=== PATIENT | male | born 1935 | race Caucasian/White ===

== ENCOUNTER 2018-09-02 07:41 | Outpatient (CLI) | payer MEDICARE ==
--- NOTE | 2018-09-02 14:14 | HP ---
HISTORY OF PRESENT ILLNESS: Mr. Kristofer Dorado is a very pleasant 82-year-old gentleman accompanied by his , who presents to the [facility] for evaluation of an ulceration of the left medial foot in the region of the metatarsophalangeal joint. The patient states that the ulceration has been present for approximately one year. He states that the ulceration began as a callus. He states that the "skin peeled off and never healed". The patient states he has been treated with an antibiotic ointment in the past. He also states he has received a trial of Promogran. The patient was referred to the Wound Center by Dr. Jada De La Garza for evaluation for hyperbaric oxygen therapy. Records indicate that the patient has received a trial of Medihoney and a trial of Promogran for the left medial foot ulceration. The patient states that he is presently receiving dressing changes with the assistance of home health. PAST MEDICAL HISTORY: 1. Atrial fibrillation. 2. Hypertension. 3. Coronary artery disease. 4. Nephrolithiasis. 5. Diabetes mellitus. 6. CVA x2. 7. TIA. 8. Gastroesophageal reflux disease. 9. Gout. 10. DJD. 11. History of DVT and PE. 12. Peripheral vascular disease. 13. Chronic kidney disease, stage 3. PAST SURGICAL HISTORY: 1. Nasal surgery. 2. Tonsillectomy. 3. Neck surgery. 4. Skin carcinoma removal. 5. Right foot surgery. 6. 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 MEDICATIONS: 1. Glipizide. 2. Coreg. 3. Coenzyme Q10. 4. Hydralazine. 5. Flomax. 6. Coumadin. 7. Clonidine. 8. Vitamin B12. ALLERGIES: NO KNOWN DIAGNOSED ALLERGIES. SOCIAL HISTORY: Negative for tobacco or EtOH use. FAMILY HISTORY: Negative for diabetes mellitus or coronary artery disease. PHYSICAL EXAMINATION: VITAL SIGNS: Temperature 97.4, pulse 77, respirations 18, and blood pressure 138/65. Accu-Chek 134. GENERAL: An 82-year-old gentleman, sitting on chair in examination room, in no acute distress. HEENT: Normocephalic, atraumatic. NECK: No nuchal rigidity. CHEST: Clear to auscultation. CV: Regular rate and rhythm. ABDOMEN: Soft. EXTREMITIES: An ulceration of the left foot in the region of the 1st metatarsophalangeal joint is present, which measures approximately 1.4 x 1.3 cm. Nonviable tissue present within the wound margins was debrided with an excisional full-thickness debridement. No purulent drainage is associated with the wound. No erythema of the skin surrounding the wound is present. No maceration of the skin of the periwound is noted. A dorsalis pedis pulse is palpable on the right. No significant edema of the left foot is present on exam today. ASSESSMENT AND PLAN: 1. 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 Dressing changes of Hydrofera Blue and Mepilex border will be initiated today. These dressing changes are to be performed 3 times per week after cleansing and irrigation with the assistance of home health. No antibiotics will be prescribed today based upon the appearance of the wound. In view of the chronicity of the wound, however, arrangements will be made for MRI of the left foot to look for findings suggestive of osteomyelitis. MRI with and without contrast will be obtained if possible. I will see Mr. Dorado again in 3 weeks. I have explained to the patient that he is not at the present time a candidate for hyperbaric oxygen therapy as tendon or bone is not exposed and he has no history of chronic refractory osteomyelitis at the present time. I have explained to the patient that he is a candidate for treatment with a bioengineered skin substitute, which will be initiated after MRI of the left foot is obtained. 2. Diabetes mellitus. The patient's Accu-Chek in clinic today is 134. The patient has been reminded that for optimal wound healing, his blood glucoses should remain below 150. 3. Atrial fibrillation. 4. Hypertension. 5. Coronary artery disease. 6. Nephrolithiasis. 7. Cerebrovascular accident x2. 8. Transient ischemic attack. 9. Gastroesophageal reflux disease. 10. Gout. 11. Degenerative joint disease. 12. History of deep vein thrombosis and pulmonary embolism. 13. Peripheral vascular disease. 14. Chronic kidney disease, stage 3. Job ID: [id number]
[2018-09-02] MEDS ORDERED: Sodium Chloride 0.9% 15 ML NEB ONE (15:00)
== END 2018-09-02 07:42 | disposition home or self-care (01) ==
LOC: WCC 07:41
PROVIDERS: ATTEND Family Medicine
DX: E11.621 Type 2 diabetes mellitus with foot ulcer (principal); L97.529 Non-pressure chronic ulcer of other part of left foot with unspecified severity; I48.91 Unspecified atrial fibrillation; I12.9 Hypertensive chronic kidney disease with stage 1 through stage 4 chronic kidney disease, or unspecified chronic kidney disease; E11.22 Type 2 diabetes mellitus with diabetic chronic kidney disease; N18.3 Chronic kidney disease, stage 3 (moderate); I25.10 Atherosclerotic heart disease of native coronary artery without angina pectoris; N20.0 Calculus of kidney; I63.9 Cerebral infarction, unspecified; G45.9 Transient cerebral ischemic attack, unspecified; K21.9 Gastro-esophageal reflux disease without esophagitis; M10.9 Gout, unspecified; M19.90 Unspecified osteoarthritis, unspecified site; I73.9 Peripheral vascular disease, unspecified; Z86.711 Personal history of pulmonary embolism; Z86.718 Personal history of other venous thrombosis and embolism
CPT/HCPCS: 11042; 99203; A4218; G0463

== ENCOUNTER 2018-09-18 09:32 | Outpatient (CLI) | payer MEDICARE ==
--- NOTE | 2018-09-18 12:14 | MRI ---
LEFT FOOT MRI WITHOUT IV CONTRAST: Date: 09/18/18 HISTORY: 82-year-old male with history of chronic ulcer, possible osteomyelitis. COMPARISON: 04/23/18. FINDINGS: Since the prior study, there has been amputation of the distal fifth toe. There is some diffuse subcu taneous edema and fat stranding of the foot. Focal soft tissue swelling and wound medial to the great toe, primarily at the metatarsophalangeal joint and proximal phalanx level. There are some arthrosis and degenerative changes of the first metatarsophalangeal joint. No evidence for acute osteomyelitis . No evidence for a drainable abscess. There is some scattered T2 hyperintensity within the intrinsic muscles of the foot, nonspecific finding can certainly be seen in diabetes. IMPRESSION: Soft tissue focal thickening and ulcer medial to the first toe at the metatarsophalangeal joint level . No evidence for osteomyelitis. No evidence for drainable abscess. Diffuse soft tissue subcutaneous edema and swelling. Status post amputation changes of the distal fifth toe. POS: NATALI
== END 2018-09-18 09:33 | disposition home or self-care (01) ==
LOC: BICMRI 09:32
PROVIDERS: ATTEND Family Medicine
DX: E11.621 Type 2 diabetes mellitus with foot ulcer (principal); L97.529 Non-pressure chronic ulcer of other part of left foot with unspecified severity; R60.0 Localized edema; M79.89 Other specified soft tissue disorders; Z89.422 Acquired absence of other left toe(s)

== ENCOUNTER 2018-09-23 10:04 | Outpatient (CLI) | payer MEDICARE ==
--- NOTE | 2018-09-23 11:36 | PRG ---
DATE OF SERVICE: 09/23/2018 HISTORY: Mr. Kristofer Dorado is a very pleasant 82-year-old gentleman, accompanied by his , who presents to the Wound Center for evaluation of an ulceration of the left medial foot in the region of the metatarsophalangeal joint. The patient previously stated that the ulceration had been present for approximately 1 year. He stated that the ulceration began as a callus. He stated that the skin peeled off and never healed. He stated he had been treated with an antibiotic ointment in the past. He also stated he had received a trial of Promogran. Records accompanying the patient at the time of his initial presentation to the Wound Center indicated that the patient had received a trial of Medihoney and a trial of Promogran for the left medial foot ulceration. The patient continues to receive dressing changes with the assistance of Home Health. PHYSICAL EXAMINATION: VITAL SIGNS: Temperature 97.5, pulse 60, blood pressure 144/65, Accu-Chek 96. EXTREMITIES: An ulceration of the left foot in the region of the first metatarsophalangeal joint is present, which measures approximately 1.3 x 1.3 cm. The dimensions of the wound at the time of the patient's last visit were approximately 1.4 x 1.3 cm. Nonviable tissue present within the wound margins was debrided with an excisional full-thickness debridement. No purulent drainage is associated with the wound. No erythema of the skin surrounding the wound is present. No maceration of the skin of the periwound is noted. A dorsalis pedis pulse is palpable on the left. No significant edema of the left foot is present on exam today. ASSESSMENT AND PLAN: 1. 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 Dressing changes of Hydrofera Blue and Mepilex border will be continued 3 times per week after cleansing and irrigation with the assistance of Home Health. MRI of the left foot obtained on 09/18/2018 showed no evidence for osteomyelitis. I will see Mr. Dorado again in 2 weeks. At this time, consideration will be given to treatment with a skin substitute. 2. Diabetes mellitus. The patient's Accu-Chek in clinic today is 96. The patient has been reminded that for optimal wound healing his blood glucoses should remain below 150. 3. Atrial fibrillation. 4. Hypertension. 5. Coronary artery disease. 6. Nephrolithiasis. 7. Cerebrovascular accident x2. 8. Transient ischemic attack. 9. Gastroesophageal reflux disease. 10. Gout. 11. Degenerative joint disease. 12. History of deep vein thrombosis and pulmonary embolism. 13. Peripheral vascular disease. 14. Chronic kidney disease stage 3. Job ID: [id number]
== END 2018-09-23 10:05 | disposition home or self-care (01) ==
LOC: WCC 10:04
PROVIDERS: ATTEND Family Medicine
DX: E11.621 Type 2 diabetes mellitus with foot ulcer (principal); L97.529 Non-pressure chronic ulcer of other part of left foot with unspecified severity; I12.9 Hypertensive chronic kidney disease with stage 1 through stage 4 chronic kidney disease, or unspecified chronic kidney disease; E11.22 Type 2 diabetes mellitus with diabetic chronic kidney disease; N18.3 Chronic kidney disease, stage 3 (moderate); I48.91 Unspecified atrial fibrillation; N20.0 Calculus of kidney; I63.9 Cerebral infarction, unspecified; G45.9 Transient cerebral ischemic attack, unspecified; K21.9 Gastro-esophageal reflux disease without esophagitis; M10.9 Gout, unspecified; M19.90 Unspecified osteoarthritis, unspecified site; I25.10 Atherosclerotic heart disease of native coronary artery without angina pectoris; I73.9 Peripheral vascular disease, unspecified
CPT/HCPCS: 11042

== ENCOUNTER 2018-10-07 10:12 | Outpatient (CLI) | payer MEDICARE ==
--- NOTE | 2018-10-07 11:55 | PRG ---
DATE OF SERVICE: 10/07/2018 HISTORY: Mr. Kristofer Dorado is a very pleasant 82-year-old gentleman, accompanied by his , who presents to the Wound Center for evaluation of an ulceration of the left medial foot in the region of the metatarsophalangeal joint. The patient previously stated that the ulceration had been present for approximately 1 year. He stated that the ulceration began as a callus. He stated that the skin peeled off and never healed. He stated he had been treated with an antibiotic ointment in the past. He also stated he had received a trial of Promogran. Records accompanying the patient at the time of his initial presentation to the Wound Center indicated that the patient had received a trial of Medihoney and a trial of Promogran for the left medial foot ulceration. The patient continues to receive dressing changes with the assistance of Home Health. PHYSICAL EXAMINATION: VITAL SIGNS: Temperature 97.5, pulse 56, respirations 20, blood pressure 113/71. Accu-Chek 114. EXTREMITIES: An ulceration of the left foot in the region of the first metatarsophalangeal joint is present, which measures approximately 1.3 x 1.3 cm. The dimensions of the wound at the time of the patient's last visit were approximately 1.3 x 1.3 cm. Nonviable tissue present within the wound margins was debrided with an excisional full-thickness debridement. No purulent drainage is associated with the wound. No erythema of the skin surrounding the wound is present. No maceration of the skin of the periwound is noted. A dorsalis pedis pulse is palpable on the left. No significant edema of the left foot is present on exam today. ASSESSMENT AND PLAN: 1. 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 MatriStem sheet 3 x 3.5 cm was applied to the wound bed of the ulceration today followed by Adaptic and Mepilex border. The MatriStem sheet was secured to the wound bed with Steri-Strips and Mastisol. The patient's compression garment was applied over the MatriStem sheet and the secondary dressings. Orders will be transmitted to Home Health for the dressings applied in clinic today to be left intact until the patient's followup visit in 1 week. The patient understands and is in agreement with the preceding treatment plan. The patient states he will follow up in the wound center 1 week from today. At this time, consideration will be given to another placement of MatriStem sheet. MRI of the left foot obtained on 09/18/2018, showed no evidence for osteomyelitis. 2. Diabetes mellitus. The patient's Accu-Chek in clinic today is 114. The patient has been reminded that for optimal wound healing, his blood glucoses should remain below 150. 3. Atrial fibrillation. 4. Hypertension. 5. Coronary artery disease. 6. Nephrolithiasis. 7. Cerebrovascular accident x2. 8. Transient ischemic attack. 9. Gastroesophageal reflux disease. 10. Gout. 11. Degenerative joint disease. 12. History of deep venous thrombosis and pulmonary embolism. 13. Peripheral vascular disease. 14. Chronic kidney disease stage 3. Job ID: [id number]
[2018-10-07] MEDS ORDERED: Sodium Chloride 0.9% 15 ML NEB ONE ×2 (15:36→20:12)
[2018-10-07] MEDS ORDERED: Lidocaine 2% PF 100 mg/5 ml Syringe ONE ×2 (15:36→20:12)
== END 2018-10-07 10:13 | disposition home or self-care (01) ==
LOC: WCC 10:12
PROVIDERS: ATTEND Family Medicine
DX: E11.621 Type 2 diabetes mellitus with foot ulcer (principal); L97.529 Non-pressure chronic ulcer of other part of left foot with unspecified severity; E11.22 Type 2 diabetes mellitus with diabetic chronic kidney disease; N18.3 Chronic kidney disease, stage 3 (moderate); I48.91 Unspecified atrial fibrillation; E11.51 Type 2 diabetes mellitus with diabetic peripheral angiopathy without gangrene; K21.9 Gastro-esophageal reflux disease without esophagitis; I12.9 Hypertensive chronic kidney disease with stage 1 through stage 4 chronic kidney disease, or unspecified chronic kidney disease; I25.10 Atherosclerotic heart disease of native coronary artery without angina pectoris; M10.9 Gout, unspecified; M19.90 Unspecified osteoarthritis, unspecified site; N20.0 Calculus of kidney; Z86.73 Personal history of transient ischemic attack (TIA), and cerebral infarction without residual deficits
CPT/HCPCS: 97139; C5275; Q4166; A4218; J2001

== ENCOUNTER 2018-10-14 10:29 | Outpatient (CLI) | payer MEDICARE ==
--- NOTE | 2018-10-14 12:01 | PRG ---
DATE OF SERVICE: 10/14/2018 HISTORY: Mr. Kristofer Dorado is a very pleasant 83-year-old gentleman accompanied by his , who presents to the Wound Center for evaluation of an ulceration of the left medial foot in the region of the metatarsophalangeal joint. The patient previously stated that the ulceration had been present for approximately 1 year. He stated that the ulceration began as a callus. He stated that the skin peeled off and never healed. He stated he had been treated with an antibiotic ointment in the past. He also stated he had received a trial of Promogran. Records accompanying the patient at the time of his initial presentation to the Wound Center indicated that the patient had received a trial of Medihoney and a trial of Promogran for the left medial foot ulceration. At the time of the patient's last visit, MatriStem sheet was applied to the wound bed of the ulceration. PHYSICAL EXAMINATION: VITAL SIGNS: Temperature 97.5, pulse 75, respirations 18, blood pressure 137/61. Accu-Chek 114. EXTREMITIES: An ulceration of the left foot in the region of the first metatarsophalangeal joint is present, which measures approximately 1.5 x 1.3 cm. Nonviable tissue present within the wound margins was debrided with an excisional full-thickness debridement with the use of a curette. More granulation tissue is visible within the wound margins than at the time of the patient's last visit. No purulent drainage is associated with the wound. No erythema of the skin surrounding the wound is present. No maceration of the skin of the periwound is noted. No significant edema of the left foot is present on exam today. ASSESSMENT AND PLAN: 1. 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 MatriStem sheet 3 x 3.5 cm was applied to the wound bed of the ulceration today followed by Adaptic and Mepilex Border. The MatriStem sheet was secured to the wound bed with Steri-Strips and Mastisol. The patient's compression garment was applied over the MatriStem sheet and the secondary dressings. Orders will be transmitted to Home Health for the dressings applied in clinic today to be left intact until the patient's followup visit in 1 week. At the time of the patient's followup visit, consideration will be given to an another placement of MatriStem sheet. MRI of the left foot obtained on 09/18/2018 showed no evidence of osteomyelitis. 2. Diabetes mellitus. The patient's Accu-Chek in clinic today is 114. The patient has been reminded that for optimal wound healing, his blood glucoses should remain below 150. 3. Atrial fibrillation. 4. Hypertension. 5. Coronary artery disease. 6. Nephrolithiasis. 7. Cerebrovascular accident x2. 8. Transient ischemic attack. 9. Gastroesophageal reflux disease. 10. Gout. 11. Degenerative joint disease. 12. History of deep venous thrombosis and pulmonary embolism. 13. Peripheral vascular disease. 14. Chronic kidney disease, stage 3. Job ID: [id number]
[2018-10-14] MEDS ORDERED: Lidocaine 2% PF 100 mg/5 ml Syringe ONE (15:00)
[2018-10-14] MEDS ORDERED: Sodium Chloride 0.9% 15 ML NEB ONE (15:00)
== END 2018-10-14 10:30 | disposition home or self-care (01) ==
LOC: WCC 10:29
PROVIDERS: ATTEND Family Medicine
DX: E11.621 Type 2 diabetes mellitus with foot ulcer (principal); L97.529 Non-pressure chronic ulcer of other part of left foot with unspecified severity; I12.9 Hypertensive chronic kidney disease with stage 1 through stage 4 chronic kidney disease, or unspecified chronic kidney disease; N18.3 Chronic kidney disease, stage 3 (moderate); I48.91 Unspecified atrial fibrillation; I25.10 Atherosclerotic heart disease of native coronary artery without angina pectoris; N20.0 Calculus of kidney; G45.9 Transient cerebral ischemic attack, unspecified; K21.9 Gastro-esophageal reflux disease without esophagitis; M10.9 Gout, unspecified; M19.90 Unspecified osteoarthritis, unspecified site; I73.9 Peripheral vascular disease, unspecified; I63.9 Cerebral infarction, unspecified; Z86.711 Personal history of pulmonary embolism; Z86.718 Personal history of other venous thrombosis and embolism
CPT/HCPCS: Q4166-KX-JC

== ENCOUNTER 2018-10-21 11:03 | Outpatient (CLI) | payer MEDICARE ==
[~2018-10-21 11:03] MED LIST: Sodium Chloride 0.9% 15 ML NEB ONE
--- NOTE | 2018-10-21 13:16 | PRG ---
DATE OF SERVICE: 10/21/2018 HISTORY: Mr. Kristofer Dorado is a very pleasant 83-year-old gentleman, accompanied by his , who presents to the Wound Center for evaluation of an ulceration of the left medial foot in the region of the metatarsophalangeal joint. The patient previously stated that the ulceration had been present for approximately 1 year. He stated that the ulceration began as a callus. He stated that the skin peeled off and never healed. He stated he had been treated with an antibiotic ointment in the past. He also stated he had received a trial of Promogran. Records accompanying the patient at the time of his initial presentation to the Wound Center indicated that the patient had received a trial of Medihoney and a trial of Promogran for the left medial foot ulceration. The patient is presently receiving treatment with MatriStem sheet. PHYSICAL EXAMINATION: VITAL SIGNS: Temperature 97.3, pulse 63, respirations 21, blood pressure 122/69. Accu-Chek 109. EXTREMITIES: An ulceration of the left foot in the region of the first metatarsophalangeal joint is present, which measures approximately 1.3 x 1.3 cm. No purulent drainage is associated with the wound. No erythema of the skin surrounding the wound is present. No maceration of the skin of the periwound is noted. No significant edema of the left foot is present on exam today. ASSESSMENT AND PLAN: 1. 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 MatriStem sheet 3 x 3.5 cm was applied to the wound bed of the ulceration today followed by Adaptic, 4x4s, Webril, and 3M Coban 2 Layer Compression System. The MatriStem sheet was secured to the wound bed with Steri-Strips and Mastisol over the periwound. Orders will be transmitted to Home Health for the dressings applied in clinic today to be left intact until the patient's followup visit in 1 week. At the time of the patient's followup visit, consideration will be given to another placement of MatriStem sheet. MRI of the left foot obtained on 09/18/2018, showed no evidence of osteomyelitis. 2. Diabetes mellitus. The patient's Accu-Chek in clinic today is 109. The patient has been reminded that for optimal wound healing, his blood glucoses should remain below 150. 3. Atrial fibrillation. 4. Hypertension. 5. Coronary artery disease. 6. Nephrolithiasis. 7. Cerebrovascular accident x2. 8. Transient ischemic attack. 9. Gastroesophageal reflux disease. 10. Gout. 11. Degenerative joint disease. 12. History of deep venous thrombosis and pulmonary embolism. 13. Peripheral vascular disease. 14. Chronic kidney disease stage 3. Job ID: [id number]
== END 2018-10-21 11:04 | disposition home or self-care (01) ==
LOC: WCC 11:03
PROVIDERS: ATTEND Family Medicine
DX: E11.621 Type 2 diabetes mellitus with foot ulcer (principal); L97.529 Non-pressure chronic ulcer of other part of left foot with unspecified severity; I48.91 Unspecified atrial fibrillation; I25.10 Atherosclerotic heart disease of native coronary artery without angina pectoris; E11.22 Type 2 diabetes mellitus with diabetic chronic kidney disease; I12.9 Hypertensive chronic kidney disease with stage 1 through stage 4 chronic kidney disease, or unspecified chronic kidney disease; N18.3 Chronic kidney disease, stage 3 (moderate); N20.0 Calculus of kidney; K21.9 Gastro-esophageal reflux disease without esophagitis; M10.9 Gout, unspecified; M19.90 Unspecified osteoarthritis, unspecified site; I73.9 Peripheral vascular disease, unspecified; I63.9 Cerebral infarction, unspecified; G45.9 Transient cerebral ischemic attack, unspecified; Z86.711 Personal history of pulmonary embolism; Z86.718 Personal history of other venous thrombosis and embolism
CPT/HCPCS: A4218; C5275; Q4166-KX-JC

== ENCOUNTER 2018-10-28 10:22 | Outpatient (CLI) | payer MEDICARE ==
--- NOTE | 2018-10-28 11:30 | PRG ---
DATE OF SERVICE: 10/28/2018 HISTORY: Mr. Kristofer Dorado is a very pleasant 83-year-old gentleman, accompanied by his who presents to the Wound Center for evaluation of an ulceration of the left medial foot in the region of the metatarsophalangeal joint. Previously, the patient stated that the ulceration had been present for approximately 1 year. He stated that the ulceration began as a callus. He stated that the skin peeled off and never healed. He stated he had been treated with an antibiotic ointment in the past. He also stated he had received a trial of Promogran. Records accompanying the patient at the time of his initial presentation to the Wound Center indicated that the patient had received a trial of Medihoney and a trial of Promogran for the left medial foot ulceration. Currently, the patient is receiving treatment with MatriStem sheet. PHYSICAL EXAMINATION: VITAL SIGNS: Temperature 97.6, pulse 60, respirations 20, blood pressure 136/75, Accu-Chek 107. EXTREMITIES: An ulceration of the left foot in the region of the first metatarsophalangeal joint is present, which measures approximately 1.4 x 1.2 cm. No purulent drainage is associated with the wound. No erythema of the skin surrounding the wound is present. No maceration of the skin of the periwound is noted. No significant edema of the left foot is present on exam today. A dorsalis pedis pulse is palpable on the left. ASSESSMENT AND PLAN: 1. 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 MatriStem sheet 3 x 3.5 cm was applied to the wound bed of the ulceration today followed by Adaptic, 4x4s, Webril, and 3M Coban 2 Layer Compression System. The MatriStem sheet was secured to the wound bed with Steri-Strips and Mastisol over the periwound. Orders will be transmitted to Home Health for the dressings applied in clinic today to be left intact until the patient's followup visit in 1 week. At the time of the patient's followup visit, consideration will be given to another placement of MatriStem sheet. MRI of the left foot obtained on 09/18/2018, showed no evidence of osteomyelitis. 2. Diabetes mellitus. The patient's Accu-Chek in clinic today is 107. The patient has been reminded that for optimal wound healing his blood glucoses should remain below 150. 3. Atrial fibrillation. 4. Hypertension. 5. Coronary artery disease. 6. Nephrolithiasis. 7. Cerebrovascular accident x2. 8. Transient ischemic attack. 9. Gastroesophageal reflux disease. 10. Gout. 11. Degenerative joint disease. 12. History of deep venous thrombosis and pulmonary embolism. 13. Peripheral vascular disease. 14. Chronic kidney disease stage 3. Job ID: [id number]
[2018-10-28] MEDS ORDERED: Sodium Chloride 0.9% 15 ML NEB ONE (16:02)
== END 2018-10-28 10:23 | disposition home or self-care (01) ==
LOC: WCC 10:22
PROVIDERS: ATTEND Family Medicine
DX: E11.621 Type 2 diabetes mellitus with foot ulcer (principal); L97.529 Non-pressure chronic ulcer of other part of left foot with unspecified severity; I48.91 Unspecified atrial fibrillation; I25.10 Atherosclerotic heart disease of native coronary artery without angina pectoris; G45.9 Transient cerebral ischemic attack, unspecified; K21.9 Gastro-esophageal reflux disease without esophagitis; M10.9 Gout, unspecified; M19.90 Unspecified osteoarthritis, unspecified site; I73.9 Peripheral vascular disease, unspecified; I12.9 Hypertensive chronic kidney disease with stage 1 through stage 4 chronic kidney disease, or unspecified chronic kidney disease; E11.22 Type 2 diabetes mellitus with diabetic chronic kidney disease; N18.3 Chronic kidney disease, stage 3 (moderate); I63.9 Cerebral infarction, unspecified; N20.0 Calculus of kidney; Z86.711 Personal history of pulmonary embolism; Z86.718 Personal history of other venous thrombosis and embolism
CPT/HCPCS: 97139; C5275; Q4166; A4218

== ENCOUNTER 2018-11-04 10:36 | Outpatient (CLI) | payer MEDICARE ==
--- NOTE | 2018-11-04 12:11 | PRG ---
DATE OF SERVICE: 11/04/2018 SUBJECTIVE: Mr. Kristofer Dorado is a very pleasant 83-year-old gentleman, accompanied by his , who presents to the Wound Center for evaluation of an ulceration of the left medial foot in the region of the metatarsophalangeal joint. The patient previously stated that the ulceration had been present for approximately 1 year. He stated that the ulceration began as a callus. He stated that the skin peeled off and never healed. He stated he had been treated with an antibiotic ointment in the past. He also stated he had received a trial of Promogran. Records accompanying the patient at the time of his initial presentation to the Wound Center indicated that the patient had received a trial of Medihoney and a trial of Promogran for the left medial foot ulceration. Presently, the patient is receiving treatment with MatriStem sheet. OBJECTIVE: VITAL SIGNS: Temperature 97.5, pulse 63, respirations 28, and blood pressure 137/75. Accu-Chek 107. EXTREMITIES: An ulceration of the left foot is present in the region of the first metatarsophalangeal joint, which measures approximately 1.1 x 1.2 cm. The dimensions of the wound at the time of the patient's visit on 10/28/2018, were approximately 1.4 x 1.2 cm. No purulent drainage is associated with the wound. No erythema of the skin surrounding the wound is present. No maceration of the skin of the periwound is noted. A dorsalis pedis pulse is easily palpable on the left. No significant edema of the left foot is present on exam today. ASSESSMENT AND PLAN: 1. 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 MatriStem sheet 3 x 3.5 cm was applied to the wound bed of the ulceration today followed by Adaptic, 4x4s, Webril, and 3M Coban 2 Layer Compression System. The MatriStem sheet was secured to the wound bed with Steri-Strips and Mastisol over the periwound. Orders will again be transmitted to Home Health for the dressings applied in clinic today to be left intact until the patient's followup visit in 1 week. At the time of the patient's followup visit, consideration will be given to another placement of MatriStem sheet. MRI of the left foot obtained on 09/18/2018, showed no evidence of osteomyelitis. 2. Diabetes mellitus. The patient's Accu-Chek in clinic today is 107. The patient has been reminded that for optimal wound healing, his blood glucoses should remain below 150. 3. Atrial fibrillation. 4. Hypertension. 5. Coronary artery disease. 6. Nephrolithiasis. 7. Cerebrovascular accident x2. 8. Transient ischemic attack. 9. Gastroesophageal reflux disease. 10. Gout. 11. Degenerative joint disease. 12. History of deep venous thrombosis and pulmonary embolism. 13. Peripheral vascular disease. 14. Chronic kidney disease, stage 3. Job ID: [id number]
[2018-11-04] MEDS ORDERED: Sodium Chloride 0.9% 15 ML NEB ONE (18:00)
== END 2018-11-04 10:37 | disposition home or self-care (01) ==
LOC: WCC 10:36
PROVIDERS: ATTEND Family Medicine
DX: E11.621 Type 2 diabetes mellitus with foot ulcer (principal); L97.529 Non-pressure chronic ulcer of other part of left foot with unspecified severity; I48.91 Unspecified atrial fibrillation; I25.10 Atherosclerotic heart disease of native coronary artery without angina pectoris; N20.0 Calculus of kidney; I12.9 Hypertensive chronic kidney disease with stage 1 through stage 4 chronic kidney disease, or unspecified chronic kidney disease; E11.22 Type 2 diabetes mellitus with diabetic chronic kidney disease; N18.3 Chronic kidney disease, stage 3 (moderate); G45.9 Transient cerebral ischemic attack, unspecified; K21.9 Gastro-esophageal reflux disease without esophagitis; M10.9 Gout, unspecified; M19.90 Unspecified osteoarthritis, unspecified site; I73.9 Peripheral vascular disease, unspecified; I63.9 Cerebral infarction, unspecified; Z86.711 Personal history of pulmonary embolism; Z86.718 Personal history of other venous thrombosis and embolism
CPT/HCPCS: A4218; Q4166-KX-JC

== ENCOUNTER 2018-11-11 15:52 | Outpatient (CLI) | payer MEDICARE ==
--- NOTE | 2018-11-11 17:07 | PRG ---
DATE OF SERVICE: 11/11/2018 HISTORY: Mr. Kristofer Dorado is a very pleasant 83-year-old gentleman, accompanied by his , who presents to the [facility] for evaluation of an ulceration of the left medial foot in the region of the metatarsophalangeal joint. The patient previously stated that the ulceration had been present for approximately 1 year. He stated that the ulceration began as a callus. He stated that the skin peeled off and never healed. He stated he had been treated with an antibiotic ointment in the past. He also stated he had received a trial of Promogran. Records accompanying the patient at the time of his initial presentation to the Wound Center indicated that the patient had received a trial of Medihoney and a trial of Promogran for the left medial foot ulceration. Currently, the patient is receiving treatment with MatriStem sheet. PHYSICAL EXAMINATION: VITAL SIGNS: Temperature 97.4, pulse 61, blood pressure 121/65. Accu-Chek 136. EXTREMITIES: An ulceration of the left foot is present in the region of the first metatarsophalangeal joint which measures approximately 1.3 x 1.1 cm. Granulation tissue is visible within the wound margins. No purulent drainage is associated with the wound. No erythema of the skin surrounding the wound is present. No maceration of the skin of the periwound is noted. A dorsalis pedis pulse is easily palpable on the left. No significant edema of the left foot is present on exam today. ASSESSMENT AND PLAN: 1. 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 MatriStem sheet 3 x 3.5 cm was applied to the wound bed of the ulceration today followed by Adaptic, 4x4s, Webril, and the 3M Coban 2 Layer Compression System. The MatriStem sheet was secured to the wound bed with Steri-Strips and Mastisol over the periwound. Orders will be transmitted to Home Health for the dressings applied in clinic today to be left intact until the patient's followup visit in 1 week. At the time of the patient's followup visit, consideration will be given to another placement of MatriStem sheet. MRI of the left foot obtained on 09/18/2018 showed no evidence of osteomyelitis. 2. Diabetes mellitus. The patient's Accu-Chek in clinic today is 136. The patient has been reminded that for optimal wound healing his blood glucoses should remain below 150. 3. Atrial fibrillation. 4. Hypertension. 5. Coronary artery disease. 6. Nephrolithiasis. 7. Cerebrovascular accident x2. 8. Transient ischemic attack. 9. Gastroesophageal reflux disease. 10. Gout. 11. Degenerative joint disease. 12. History of deep venous thrombosis and pulmonary embolism. 13. Peripheral vascular disease. 14. Chronic kidney disease, stage 3. Job ID: [id number]
== END 2018-11-11 15:53 | disposition home or self-care (01) ==
LOC: WCC 15:52
PROVIDERS: ATTEND Family Medicine
DX: E11.621 Type 2 diabetes mellitus with foot ulcer (principal); L97.529 Non-pressure chronic ulcer of other part of left foot with unspecified severity; I48.91 Unspecified atrial fibrillation; I25.10 Atherosclerotic heart disease of native coronary artery without angina pectoris; I12.9 Hypertensive chronic kidney disease with stage 1 through stage 4 chronic kidney disease, or unspecified chronic kidney disease; N18.3 Chronic kidney disease, stage 3 (moderate); K21.9 Gastro-esophageal reflux disease without esophagitis; M10.9 Gout, unspecified; M19.90 Unspecified osteoarthritis, unspecified site; I73.9 Peripheral vascular disease, unspecified; G45.9 Transient cerebral ischemic attack, unspecified; I63.9 Cerebral infarction, unspecified; Z86.711 Personal history of pulmonary embolism; Z86.718 Personal history of other venous thrombosis and embolism
CPT/HCPCS: A4218; Q4166-KX-JC

== ENCOUNTER 2018-11-18 12:48 | Outpatient (CLI) | payer MEDICARE ==
--- NOTE | 2018-11-18 13:57 | PRG ---
DATE OF SERVICE: 11/18/2018 SUBJECTIVE: Mr. Kristofer Dorado is a very pleasant 83-year-old gentleman, accompanied by his who presents to the [facility]ound Center for evaluation of an ulceration of the left medial foot in the region of the metatarsophalangeal joint. Previously, the patient stated that the ulceration had been present for approximately 1 year. He stated that the ulceration began as a callus. He stated that the skin peeled off and never healed. He stated he had been treated with an antibiotic ointment in the past. He also stated he had received a trial of Promogran. Records accompanying the patient at the time of his initial presentation to the Wound Center indicated that the patient had received a trial of Medihoney and a trial of Promogran for the left medial foot ulceration. Presently, the patient is receiving treatment with MatriStem sheet. OBJECTIVE: VITAL SIGNS: Temperature 97.4, pulse 62, respirations 17, blood pressure 150/69, Accu-Chek 146. EXTREMITIES: An ulceration of the left foot is present in the region of the first metatarsophalangeal joint, which measures approximately 1.2 x 1.1 cm. The dimensions of the wound at the time of the patient's visit on 11/11/2018, were approximately 1.3 x 1.1 cm. Granulation tissue is visible within the wound margins. No purulent drainage is associated with the wound. No erythema of the skin surrounding the wound is present. No maceration of the skin of the periwound is noted. A dorsalis pedis pulse is easily palpable on the left. No significant edema of the left foot is present on exam today. ASSESSMENT AND PLAN: 1. 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 MatriStem sheet 3 x 3.5 cm was applied to the wound bed of the ulceration today followed by Adaptic 4x4s, Webril and the [employer] Coban 2 Layer Compression System. The patient will return to the Wound Center in 1 week for a dressing change. I will see Mr. Dorado again in 2 weeks. At the time of the patient's visit in 2 weeks, transcutaneous oxygen mapping of the distal left lower extremity will be obtained. MRI of the left foot obtained on 09/18/2018, showed no evidence of osteomyelitis. 2. Diabetes mellitus. The patient's Accu-Chek in clinic today is 146. The patient has been reminded that for optimal wound healing his blood glucoses should remain below 150. 3. Atrial fibrillation. 4. Hypertension. 5. Coronary artery disease. 6. Nephrolithiasis. 7. Cerebrovascular accident x2. 8. Transient ischemic attack. 9. Gastroesophageal reflux disease. 10. Gout. 11. Degenerative joint disease. 12. History of deep venous thrombosis and pulmonary embolism. 13. Peripheral vascular disease. 14. Chronic kidney disease, stage 3. Job ID: [id number]
[2018-11-18] MEDS ORDERED: Sodium Chloride 0.9% 15 ML NEB ONE (18:00)
== END 2018-11-18 12:49 | disposition home or self-care (01) ==
LOC: WCC 12:48
PROVIDERS: ATTEND Family Medicine
DX: E11.621 Type 2 diabetes mellitus with foot ulcer (principal); L97.529 Non-pressure chronic ulcer of other part of left foot with unspecified severity; I12.9 Hypertensive chronic kidney disease with stage 1 through stage 4 chronic kidney disease, or unspecified chronic kidney disease; E11.22 Type 2 diabetes mellitus with diabetic chronic kidney disease; N18.3 Chronic kidney disease, stage 3 (moderate); N20.0 Calculus of kidney; I25.10 Atherosclerotic heart disease of native coronary artery without angina pectoris; I48.91 Unspecified atrial fibrillation; I63.9 Cerebral infarction, unspecified; G45.9 Transient cerebral ischemic attack, unspecified; K21.9 Gastro-esophageal reflux disease without esophagitis; M10.9 Gout, unspecified; M19.90 Unspecified osteoarthritis, unspecified site; I73.9 Peripheral vascular disease, unspecified; Z86.718 Personal history of other venous thrombosis and embolism
CPT/HCPCS: A4218; C5275; Q4166-KX-JC

== ENCOUNTER 2018-11-25 13:13 | Outpatient (CLI) | payer MEDICARE ==
[2018-11-25] MEDS ORDERED: Sodium Chloride 0.9% 15 ML NEB ONE (16:54)
== END 2018-11-25 13:14 | disposition home or self-care (01) ==
LOC: WCC 13:13
PROVIDERS: ATTEND Family Medicine
DX: L97.429 Non-pressure chronic ulcer of left heel and midfoot with unspecified severity (principal)
CPT/HCPCS: 29581; A4218

== ENCOUNTER 2018-12-02 15:29 | Outpatient (CLI) | payer MEDICARE ==
--- NOTE | 2018-12-02 11:33 | PRG ---
DATE OF SERVICE: 12/02/2018 HISTORY: Mr. Kristofer Dorado is a very pleasant 83-year-old gentleman, accompanied by his who presents to the [facility]ound Center for evaluation of an ulceration of the left medial foot in the region of the metatarsophalangeal joint. The patient previously stated that the ulceration had been present for approximately 1 year. He stated that the ulceration began as a callus. He stated that the skin peeled off and never healed. He stated he had been treated with an antibiotic ointment in the past. He also stated he had received a trial of Promogran. Records accompanying the patient at the time of his initial presentation to the Wound Center indicated that the patient had received a trial of Medihoney and a trial of Promogran for the left medial foot ulceration. Most recently, the patient has received treatment with MatriStem sheet. PHYSICAL EXAMINATION: VITAL SIGNS: Temperature 97.4, pulse 59, respirations 17, and blood pressure 137/83. Accu-Chek 108. EXTREMITIES: An ulceration of the left foot is present in the region of the first metatarsophalangeal joint, which measures approximately 1.2 x 1.1 cm. The dimensions of the wound at the time of the patient's visit on 11/18/2018, were also approximately 1.2 x 1.1 cm. Granulation tissue is visible within the wound margins. No purulent drainage is associated with the wound. No erythema of the skin surrounding the wound is present. No maceration of the skin of the periwound is noted. No significant edema of the left foot is present on exam today. ASSESSMENT AND PLAN: 1. 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 Medihoney, 4x4s, Webril, and the 3M Coban 2 Layer Compression System will be applied to the ulceration today. The patient will return to the Wound Center in 2 days for transcutaneous oxygen mapping of the distal left lower extremity. I will see Mr. Dorado again in 1 week. MRI of the left foot obtained on 09/18/2018, showed no evidence of osteomyelitis. 2. Diabetes mellitus. The patient's Accu-Chek in clinic today is 108. The patient has been reminded that for optimal wound healing, his blood glucoses should remain below 150. 3. Atrial fibrillation. 4. Hypertension. 5. Coronary artery disease. 6. Nephrolithiasis. 7. Cerebrovascular accident x2. 8. Transient ischemic attack. 9. Gastroesophageal reflux disease. 10. Gout. 11. Degenerative joint disease. 12. History of deep venous thrombosis and pulmonary embolism. 13. Peripheral vascular disease. 14. Chronic kidney disease, stage 3. Job ID: [id number]
== END 2018-12-02 15:30 | disposition home or self-care (01) ==
LOC: WCC 15:29
PROVIDERS: ATTEND Family Medicine
DX: E11.621 Type 2 diabetes mellitus with foot ulcer (principal); L97.529 Non-pressure chronic ulcer of other part of left foot with unspecified severity; I48.91 Unspecified atrial fibrillation; I25.10 Atherosclerotic heart disease of native coronary artery without angina pectoris; N20.0 Calculus of kidney; I12.9 Hypertensive chronic kidney disease with stage 1 through stage 4 chronic kidney disease, or unspecified chronic kidney disease; N18.3 Chronic kidney disease, stage 3 (moderate); K21.9 Gastro-esophageal reflux disease without esophagitis; M10.9 Gout, unspecified; M19.90 Unspecified osteoarthritis, unspecified site; I73.9 Peripheral vascular disease, unspecified; I63.9 Cerebral infarction, unspecified; G45.9 Transient cerebral ischemic attack, unspecified; Z86.711 Personal history of pulmonary embolism; Z86.718 Personal history of other venous thrombosis and embolism
CPT/HCPCS: 29581; A4218

== ENCOUNTER 2018-12-04 11:09 | Outpatient (CLI) | payer MEDICARE | END 2018-12-04 11:10 | disposition home or self-care (01) | LOC: WCC 11:09 | PROVIDERS: ATTEND Family Medicine | DX: L97.529 Non-pressure chronic ulcer of other part of left foot with unspecified severity (principal) | CPT/HCPCS: 29581; 93923 ==

== ENCOUNTER 2018-12-09 10:56 | Outpatient (CLI) | payer MEDICARE ==
[~2018-12-09 10:56] MED LIST changes: +Lidocaine 2% PF 100 mg/5 ml Syringe ONE
--- NOTE | 2018-12-09 17:16 | PRG ---
DATE OF SERVICE: 12/09/2018 HISTORY: Mr. Kristofer Dorado is a very pleasant 83-year-old gentleman, accompanied by his , who presents to the Wound Center for evaluation of an ulceration of the left medial foot in the region of the metatarsophalangeal joint. The patient previously stated that the ulceration had been present for approximately 1 year. He stated that the ulceration began as a callus. He stated that the skin peeled off and never healed. He stated he had been treated with an antibiotic ointment in the past. He also stated he had received a trial of Promogran. Records accompanying the patient at the time of his initial presentation to the Wound Center indicated that the patient had received a trial of Medihoney and a trial of Promogran for the left medial foot ulceration. The patient recently received treatment with MatriStem sheet. At the time of the patient's last visit, Medihoney, 4x4s, Webril, and the 3M Coban 2 Layer Compression System were applied to the ulceration. PHYSICAL EXAMINATION: VITAL SIGNS: Temperature 97.3, pulse 63, respirations 18, and blood pressure 137/72. Accu-Chek 124. EXTREMITIES: An ulceration of the left foot is present, which measures approximately 1.2 x 1.1 cm. The ulceration is present in the region of the first metatarsophalangeal joint. Granulation tissue is visible within the wound margins. No purulent drainage is associated with the wound. No cellulitis of the left foot is appreciated. No maceration of the skin of the periwound is noted. A dorsalis pedis pulse is easily palpable on the left. No significant edema of the left foot is appreciated on today's exam. ASSESSMENT AND PLAN: 1. 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 Medihoney, 4x4s, Webril, and the 3M Coban 2 Layer Compression System will be applied to the ulceration today. I will see Mr. Dorado again in 1 week. MRI of the left foot obtained on 09/18/2018, showed no evidence of osteomyelitis. The patient has been referred for a vascular evaluation. I will discuss the treatment plan with Dr. Coreas. 2. Diabetes mellitus. The patient's Accu-Chek in clinic today is 124. The patient has been reminded that for optimal wound healing, his blood glucoses should remain below 150. 3. Atrial fibrillation. 4. Hypertension. 5. Coronary artery disease. 6. Nephrolithiasis. 7. Cerebrovascular accident x2. 8. Transient ischemic attack. 9. Gastroesophageal reflux disease. 10. Gout. 11. Degenerative joint disease. 12. History of deep venous thrombosis and pulmonary embolism. 13. Peripheral vascular disease. 14. Chronic kidney disease, stage 3. Job ID: [id number]
== END 2018-12-09 10:57 | disposition home or self-care (01) ==
LOC: WCC 10:56
PROVIDERS: ATTEND Family Medicine
DX: E11.621 Type 2 diabetes mellitus with foot ulcer (principal); L97.529 Non-pressure chronic ulcer of other part of left foot with unspecified severity; I48.91 Unspecified atrial fibrillation; I25.10 Atherosclerotic heart disease of native coronary artery without angina pectoris; N20.0 Calculus of kidney; K21.9 Gastro-esophageal reflux disease without esophagitis; M19.90 Unspecified osteoarthritis, unspecified site; E11.51 Type 2 diabetes mellitus with diabetic peripheral angiopathy without gangrene; M10.9 Gout, unspecified; E11.22 Type 2 diabetes mellitus with diabetic chronic kidney disease; I12.9 Hypertensive chronic kidney disease with stage 1 through stage 4 chronic kidney disease, or unspecified chronic kidney disease; N18.3 Chronic kidney disease, stage 3 (moderate); Z86.73 Personal history of transient ischemic attack (TIA), and cerebral infarction without residual deficits; Z86.711 Personal history of pulmonary embolism; Z86.718 Personal history of other venous thrombosis and embolism
CPT/HCPCS: 29581; A4218; J2001

== ENCOUNTER 2018-12-18 14:26 | Outpatient (CLI) | payer MEDICARE ==
[~2018-12-18 14:26] MED LIST changes: -Lidocaine 2% PF 100 mg/5 ml Syringe ONE
== END 2018-12-18 14:27 | disposition home or self-care (01) ==
LOC: WCC 14:26
PROVIDERS: ATTEND Family Medicine
DX: L97.529 Non-pressure chronic ulcer of other part of left foot with unspecified severity (principal)
CPT/HCPCS: 29581; A4218

== ENCOUNTER 2018-12-23 10:42 | Outpatient (CLI) | payer MEDICARE ==
--- NOTE | 2018-12-23 12:33 | PRG ---
DATE OF SERVICE: 12/23/2018 HISTORY: Mr. Kristofer Dorado is a very pleasant 83-year-old gentleman, accompanied by his , who presents to the [facility]ound Center for evaluation of an ulceration of the left medial foot in the region of the metatarsophalangeal joint. Previously, the patient stated that the ulceration had been present for approximately 1 year. He stated that the ulceration began as a callus. He stated that the skin peeled off and never healed. He stated he had been treated with an antibiotic ointment in the past. He also stated he had received a trial of Promogran. Records accompanying the patient at the time of his initial presentation to the Wound Center indicated that the patient had received a trial of Medihoney and a trial of Promogran for the left medial foot ulceration. The patient has completed a course of treatment with MatriStem sheet. Most recently, the patient has been receiving dressing changes of Medihoney, 4x4s, Webril, and the 3M Coban 2-Layer Compression System for the left medial foot ulceration. PHYSICAL EXAMINATION: VITAL SIGNS: Temperature 97.8, pulse 69, respirations are 16, blood pressure 173/78. Accu-Chek 111. EXTREMITIES: An ulceration of the left foot is present, which measures approximately 1.3 x 1.2 cm. The ulceration is present in the region of the first metatarsophalangeal joint. Granulation tissue is visible within the wound margins. No purulent drainage is associated with the wound. No cellulitis of the left foot is appreciated. No maceration of the skin of the periwound is noted. A dorsalis pedis pulse is palpable on the left. No significant edema of the left foot is appreciated on exam today. ASSESSMENT AND PLAN: 1. 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 Medihoney, 4x4s, Webril, and the 3M Coban 2-layer Compression System will be applied to the ulceration today. MRI of the left foot obtained on 09/18/2018, showed no evidence of osteomyelitis. I will see Mr. Dorado again in 1 week. The patient is to undergo aortogram with left lower extremity runoff by Dr. Coreas. 2. Diabetes mellitus. The patient's Accu-Chek in clinic today is 111. The patient has been reminded that for optimal wound healing, his blood glucoses should remain below 150. 3. Atrial fibrillation. 4. Hypertension. 5. Coronary artery disease. 6. Nephrolithiasis. 7. Cerebrovascular accident x2. 8. Transient ischemic attack. 9. Gastroesophageal reflux disease. 10. Gout. 11. Degenerative joint disease. 12. History of deep venous thrombosis and pulmonary embolism. 13. Peripheral vascular disease. 14. Chronic kidney disease stage 3. Job ID: [id number]
[2018-12-23] MEDS ORDERED: Sodium Chloride 0.9% 15 ML NEB ONE (19:51)
== END 2018-12-23 10:43 | disposition home or self-care (01) ==
LOC: WCC 10:42
PROVIDERS: ATTEND Family Medicine
DX: E11.621 Type 2 diabetes mellitus with foot ulcer (principal); L97.429 Non-pressure chronic ulcer of left heel and midfoot with unspecified severity; I48.91 Unspecified atrial fibrillation; I25.10 Atherosclerotic heart disease of native coronary artery without angina pectoris; N20.0 Calculus of kidney; K21.9 Gastro-esophageal reflux disease without esophagitis; M10.9 Gout, unspecified; M19.90 Unspecified osteoarthritis, unspecified site; E11.51 Type 2 diabetes mellitus with diabetic peripheral angiopathy without gangrene; I12.9 Hypertensive chronic kidney disease with stage 1 through stage 4 chronic kidney disease, or unspecified chronic kidney disease; E11.22 Type 2 diabetes mellitus with diabetic chronic kidney disease; N18.3 Chronic kidney disease, stage 3 (moderate); Z86.718 Personal history of other venous thrombosis and embolism; Z86.73 Personal history of transient ischemic attack (TIA), and cerebral infarction without residual deficits
CPT/HCPCS: A4218

== ENCOUNTER 2018-12-30 10:34 | Outpatient (CLI) | payer MEDICARE ==
--- NOTE | 2018-12-30 17:07 | PRG ---
DATE OF SERVICE: 12/30/2018 HISTORY: Mr. Kristofer Dorado is a very pleasant 83-year-old gentleman, accompanied by his , who presents to the Wound Center for evaluation of an ulceration of the left medial foot in the region of the metatarsophalangeal joint. The patient previously stated that the ulceration had been present for approximately 1 year. He stated that the ulceration began as a callus. He stated that the skin peeled off and never healed. He stated he had been treated with an antibiotic ointment in the past. He also stated he had received a trial of Promogran. Records accompanying the patient at the time of his initial presentation to the Wound Center indicated that the patient had received a trial of Medihoney and a trial of Promogran for the left medial foot ulceration. The patient has completed a course of treatment with MatriStem sheet. Most recently the patient has been receiving dressing changes of Medihoney, 4x4s, Webril, and the 3M Coban 2-Layer Compression System for the left medial foot ulceration on a weekly basis. PHYSICAL EXAMINATION: VITAL SIGNS: Temperature 97.4, pulse 66, and blood pressure 183/103. Accu-Chek 99. EXTREMITIES: An ulceration of the left foot is present which measures approximately 1.4 x 1.2 cm. The ulceration is present in the region of the first metatarsophalangeal joint. Granulation tissue is visible within the wound margins. No purulent drainage is associated with the wound. No cellulitis of the left foot is appreciated. No maceration of the skin of the periwound is noted. A dorsalis pedis pulse is palpable on the left. No significant edema of the left foot is appreciated on exam today. ASSESSMENT AND PLAN: 1. 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 Medihoney, 4x4s, Webril, and the 3M Coban 2-Layer Compression System will be applied to the ulceration today. MRI of the left foot obtained on 09/18/2018, showed no evidence of osteomyelitis. I will see Mr. Dorado again in 1 week. The patient is to undergo aortogram with left lower extremity runoff by Dr. Coreas in the near future. 2. Diabetes mellitus. The patient's Accu-Chek in clinic today is 99. The patient has been reminded that for optimal wound healing, his blood glucoses should remain below 150. 3. Atrial fibrillation. 4. Hypertension. 5. Coronary artery disease. 6. Nephrolithiasis. 7. Cerebrovascular accident x2. 8. Transient ischemic attack. 9. Gastroesophageal reflux disease. 10. Gout. 11. Degenerative joint disease. 12. History of deep venous thrombosis and pulmonary embolism. 13. Peripheral vascular disease. 14. Chronic kidney disease stage 3. Job ID: [id number]
[2018-12-30] MEDS ORDERED: Sodium Chloride 0.9% 15 ML NEB ONE (17:28)
== END 2018-12-30 10:35 | disposition home or self-care (01) ==
LOC: WCC 10:34
PROVIDERS: ATTEND Family Medicine
DX: E11.621 Type 2 diabetes mellitus with foot ulcer (principal); L97.529 Non-pressure chronic ulcer of other part of left foot with unspecified severity; I48.91 Unspecified atrial fibrillation; I25.10 Atherosclerotic heart disease of native coronary artery without angina pectoris; N20.0 Calculus of kidney; I63.9 Cerebral infarction, unspecified; G45.9 Transient cerebral ischemic attack, unspecified; K21.9 Gastro-esophageal reflux disease without esophagitis; M10.9 Gout, unspecified; M19.90 Unspecified osteoarthritis, unspecified site; E11.51 Type 2 diabetes mellitus with diabetic peripheral angiopathy without gangrene; I12.9 Hypertensive chronic kidney disease with stage 1 through stage 4 chronic kidney disease, or unspecified chronic kidney disease; N18.3 Chronic kidney disease, stage 3 (moderate); E11.22 Type 2 diabetes mellitus with diabetic chronic kidney disease; Z86.718 Personal history of other venous thrombosis and embolism
CPT/HCPCS: 29581; A4218

== ENCOUNTER 2019-01-06 03:32 | Outpatient (CLI) | payer MEDICARE ==
[2019-01-06 16:10] LABS: Hemoglobin 15.4 g/dL (14.0-18.0); Mean Corpuscular HGB CONC 32.4 g/dL (32.0-36.0); Mean Corpuscular Hemoglobin 30.2 pg (27.0-31.0); Mean Corpuscular Volume 93.3 fL (78.0-98.0); Mean Platelet Volume 7.7 fL (7.4-10.4); Platelet Count 196 thou/uL (130-400); RBC Distribution Width 14.9 % (11.5-14.5); White Blood Cell (WBC) Count 7.5 thou/uL (4.8-10.8)
[2019-01-06 16:22] LABS: Anion Gap 10 mmol/L (10-20); BUN (Urea Nitrogen) 24 mg/dL (8.4-25.7); Calc. Creatinine Clearance 0 mL/min (70-130); Calcium 9.2 mg/dL (7.8-10.44); Carbon Dioxide 30 mmol/L (23-31); Chloride 106 mmol/L (98-107); Estimated GFR-MDRD 50; Glucose 112 mg/dL (83-110); Potassium 3.9 mmol/L (3.5-5.1); Sodium 142 mmol/L (136-145)
== END 2019-01-06 03:33 | disposition home or self-care (01) ==
LOC: LABBT 03:32
PROVIDERS: ATTEND Thoracic Surgery (Cardiothoracic Vascular Surgery)
DX: Z01.812 Encounter for preprocedural laboratory examination (principal); I73.9 Peripheral vascular disease, unspecified
CPT/HCPCS: 80048; 85027

== ENCOUNTER 2019-01-06 14:09 | Outpatient (CLI) | payer MEDICARE ==
[2019-01-06] MEDS ORDERED: Sodium Chloride 0.9% 15 ML NEB ONE (14:44)
--- NOTE | 2019-01-06 14:52 | PRG ---
DATE OF SERVICE: 01/06/2019 HISTORY: Mr. Kristofer Dorado is a very pleasant 83-year-old gentleman, accompanied by his , who presents to the [facility]ound Center for evaluation of an ulceration of the left medial foot in the region of the metatarsophalangeal joint. Previously, the patient stated that the ulceration had been present for approximately 1 year. He stated that the ulceration began as a callus. He stated that the skin peeled off and never healed. He stated he had been treated with an antibiotic ointment in the past. He also stated he had received a trial of Promogran. Records accompanying the patient at the time of his initial presentation to the Wound Center indicated that the patient had received a trial of Medihoney and a trial of Promogran for the left medial foot ulceration. The patient has completed a course of treatment with MatriStem sheet. More recently, the patient has been receiving dressing changes of Medihoney, 4x4s, Webril, and the 3M Coban 2 Layer Compression System for the left medial foot ulceration on a weekly basis. PHYSICAL EXAMINATION: VITAL SIGNS: Temperature 97.7, pulse 84, respirations 16, blood pressure 185/94. Accu-Chek 119. EXTREMITIES: An ulceration of the left foot is present, which measures approximately 1.5 x 1.3 cm. The dimensions of the wound at the time of the patient's visit on 12/30/2018 were approximately 1.4 x 1.2 cm. The ulceration is present in the region of the first metatarsophalangeal joint. Granulation tissue albeit of poor quality is visible within the wound margins. No purulent drainage is associated with the wound. No cellulitis of the left foot is appreciated. No maceration of the skin of the periwound is noted. A dorsalis pedis pulse is palpable on the left. No significant edema of the left foot is present on exam today. ASSESSMENT AND PLAN: 1. 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 Medihoney, 4x4s, Webril, and the 3M Coban 2 Layer Compression System will be applied to the ulceration today. MRI of the left foot obtained on 09/18/2018, showed no evidence of osteomyelitis. I will see Mr. Dorado again in 1 week. The patient is to undergo angiography by Dr. Coreas in 2 days. 2. Diabetes mellitus. The patient's Accu-Chek in clinic today is 119. The patient has been reminded that for optimal wound healing his blood glucoses should remain below 150. 3. Atrial fibrillation. 4. Hypertension. 5. Coronary artery disease. 6. Nephrolithiasis. 7. Cerebrovascular accident x2. 8. Transient ischemic attack. 9. Gastroesophageal reflux disease. 10. Gout. 11. Degenerative joint disease. 12. History of deep venous thrombosis and pulmonary embolism. 13. Peripheral vascular disease. 14. Chronic kidney disease stage 3. Job ID: [id number]
== END 2019-01-06 14:10 | disposition home or self-care (01) ==
LOC: WCC 14:09
PROVIDERS: ATTEND Family Medicine
DX: E11.621 Type 2 diabetes mellitus with foot ulcer (principal); L97.529 Non-pressure chronic ulcer of other part of left foot with unspecified severity; I12.9 Hypertensive chronic kidney disease with stage 1 through stage 4 chronic kidney disease, or unspecified chronic kidney disease; E11.22 Type 2 diabetes mellitus with diabetic chronic kidney disease; N18.3 Chronic kidney disease, stage 3 (moderate); N20.0 Calculus of kidney; I48.91 Unspecified atrial fibrillation; I63.9 Cerebral infarction, unspecified; I25.10 Atherosclerotic heart disease of native coronary artery without angina pectoris; G45.9 Transient cerebral ischemic attack, unspecified; K21.9 Gastro-esophageal reflux disease without esophagitis; M10.9 Gout, unspecified; M19.90 Unspecified osteoarthritis, unspecified site; I73.9 Peripheral vascular disease, unspecified; Z86.718 Personal history of other venous thrombosis and embolism
CPT/HCPCS: 29581; 80048; 85027; A4218

== ENCOUNTER 2019-01-08 08:31 | Day surgery (SDC) | payer MEDICARE ==
[2019-01-06 14:47] VITALS: BMI 30.1
[2019-01-08] MEDS ORDERED: Iopamidol 370 76% 100 ML VIAL ONE (08:41)
[2019-01-08] MEDS ORDERED: Fentanyl 100 MCG/2 ML VIAL ONE (11:23)
[2019-01-08] MEDS ORDERED: Midazolam HCl 2 mg/2 ml Vial ONE (11:23)
[2019-01-08 11:29] LABS: INR-International Normal Ratio 1.3; PTT 29.3 SEC (22.9-36.1); Prothrombin Time 15.8 SEC (12.0-14.7)
[2019-01-08] MEDS ORDERED: hydrALAZINE 20 MG/ML VIAL ONE (11:53)
[2019-01-08] MEDS ORDERED: Heparin 10,000 UNITS/1 ML VIAL ONE (12:14)
--- NOTE | 2019-01-08 13:54 | OP ---
DATE OF PROCEDURE: 01/08/2019 PREOPERATIVE DIAGNOSIS: PAD nonhealing wound, left first metatarsal head. PROCEDURES PERFORMED: Aortogram and left lower extremity runoff with contrast 44 mL and fluoro 4.2 minutes. FINDINGS: Normal aortoiliac and common femoral segments. Left superficial femoral artery widely patent with about 30% stenosis near the adductor canal. Popliteal artery normal. Anterior tibial occludes and fills slowly about 2 cm from its origin and then terminates about 2 cm further. The peroneal artery is widely patent to the ankle. Posterior tibial occludes in the mid calf and posterior tibial reconstitutes below the medial malleolus through peroneal collaterals as does the anterior tibial of the peroneal collaterals. 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 DESCRIPTION OF PROCEDURE: After prepping and draping the right groin, ultrasound-guided puncture of the right common femoral artery was carried out after lidocaine infiltration. The Contra catheter was placed through the 5-Cymraes sheath. Aortogram and iliofemoral runoff obtained. Contra catheter was then advanced into the left superficial femoral artery, where runoff of the left leg was obtained. Following completion, sheath was removed. The patient tolerated the procedure. Job ID: [id number]
[2019-01-08] MEDS ORDERED: Warfarin Sodium 2.5 MG TAB PO SCH (14:45)
== END 2019-01-08 17:00 | disposition home or self-care (01) ==
LOC: CCL 08:31
PROVIDERS: ATTEND Thoracic Surgery (Cardiothoracic Vascular Surgery)
PROC: B41D1ZZ Fluoroscopy of Aorta and Bilateral Lower Extremity Arteries using Low Osmolar Contrast (ICD-10-PCS; principal; 2019-01-08)
DX: E11.51 Type 2 diabetes mellitus with diabetic peripheral angiopathy without gangrene (principal); I70.245 Atherosclerosis of native arteries of left leg with ulceration of other part of foot; L97.529 Non-pressure chronic ulcer of other part of left foot with unspecified severity; I77.1 Stricture of artery; I10 Essential (primary) hypertension; E78.00 Pure hypercholesterolemia, unspecified; I48.0 Paroxysmal atrial fibrillation; Z86.73 Personal history of transient ischemic attack (TIA), and cerebral infarction without residual deficits; Z79.82 Long term (current) use of aspirin; Z79.84 Long term (current) use of oral hypoglycemic drugs; Z79.01 Long term (current) use of anticoagulants; Z79.899 Other long term (current) drug therapy
CPT/HCPCS: 75710; 76942; 85610; 85730; C1769; J0360; J1644; J2250; J3010; Q9967

== ENCOUNTER 2019-01-13 10:58 | Outpatient (CLI) | payer MEDICARE ==
--- NOTE | 2019-01-13 14:50 | PRG ---
DATE OF SERVICE: 01/13/2019 HISTORY: Mr. Kristofer Dorado is a very pleasant 83-year-old gentleman, accompanied by his , who presents to the Wound Center for evaluation of an ulceration of the left medial foot in the region of the metatarsophalangeal joint. The patient has completed a course of treatment with MatriStem sheet. Since the patient's last visit, Mr. Dorado underwent aortogram with left lower extremity runoff by Dr. Martin Coreas on 01/08/2019. The peroneal artery was found to be widely patent to the ankle. 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 Both arteries were found to reconstitute. The patient has no complaints today. He denies any fever or chills. OBJECTIVE: VITAL SIGNS: Temperature 97.5, pulse 69, respirations 18, blood pressure 163/86. Accu-Chek 111. EXTREMITIES: An ulceration of the left foot is present, which measures approximately 1.4 x 1.4 cm. The dimensions of the wound at the time of the patient's last visit were approximately 1.5 x 1.3 cm. The ulceration is present in the region of the first metatarsophalangeal joint. Granulation tissue albeit of poor quality is visible within the wound margins. No purulent drainage is associated with the wound. No cellulitis of the left foot is appreciated. No maceration of the skin of the periwound is noted. A portion of the periwound; however, is stained green. A dorsalis pedis pulse is palpable on the left. No significant edema of the left foot is present on exam today. After copious irrigation of the wound bed, EpiFix 18 mm was applied to the wound bed of the ulceration followed by the foam of the wound VAC. ASSESSMENT/PLAN: 1. 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 EpiFix was applied to the wound bed of the ulceration today in conjunction with negative pressure therapy. MRI of the left foot obtained on 09/18/2018, showed no evidence of osteomyelitis. The patient will return to the Wound Center for a dressing change in 5 days. 2. Diabetes mellitus. The patient's Accu-Chek in clinic today is 111. The patient has been reminded that for optimal wound healing his blood glucoses should remain below 150. 3. Atrial fibrillation. 4. Hypertension. 5. Coronary artery disease. 6. Nephrolithiasis. 7. Cerebrovascular accident x2. 8. Transient ischemic attack. 9. Gastroesophageal reflux disease. 10. Gout. 11. Degenerative joint disease. 12. History of deep venous thrombosis and pulmonary embolism. 13. Peripheral vascular disease. 14. Chronic kidney disease stage 3. Job ID: [id number]
== END 2019-01-13 10:59 | disposition home or self-care (01) ==
LOC: WCC 10:58
PROVIDERS: ATTEND Family Medicine
DX: E11.621 Type 2 diabetes mellitus with foot ulcer (principal); L97.529 Non-pressure chronic ulcer of other part of left foot with unspecified severity; I48.91 Unspecified atrial fibrillation; I25.10 Atherosclerotic heart disease of native coronary artery without angina pectoris; I63.9 Cerebral infarction, unspecified; K21.9 Gastro-esophageal reflux disease without esophagitis; M10.9 Gout, unspecified; M19.90 Unspecified osteoarthritis, unspecified site; I73.9 Peripheral vascular disease, unspecified; I12.9 Hypertensive chronic kidney disease with stage 1 through stage 4 chronic kidney disease, or unspecified chronic kidney disease; N18.3 Chronic kidney disease, stage 3 (moderate); Z86.73 Personal history of transient ischemic attack (TIA), and cerebral infarction without residual deficits
CPT/HCPCS: 15275; 97139; Q4186; A4218

== ENCOUNTER 2019-01-19 13:11 | Outpatient (CLI) | payer MEDICARE ==
[2019-01-19] MEDS ORDERED: Sodium Chloride 0.9% 15 ML NEB ONE (18:00)
== END 2019-01-19 13:12 | disposition home or self-care (01) ==
LOC: WCC 13:11
PROVIDERS: ATTEND Family Medicine
DX: L97.429 Non-pressure chronic ulcer of left heel and midfoot with unspecified severity (principal)
CPT/HCPCS: 29581; 97605; A4218

== ENCOUNTER 2019-01-22 13:42 | Outpatient (CLI) | payer MEDICARE ==
[2019-01-22] MEDS ORDERED: Sodium Chloride 0.9% 15 ML NEB ONE (15:00)
== END 2019-01-22 13:43 | disposition home or self-care (01) ==
LOC: WCC 13:42
PROVIDERS: ATTEND Family Medicine
DX: L97.429 Non-pressure chronic ulcer of left heel and midfoot with unspecified severity (principal)
CPT/HCPCS: A4218

== ENCOUNTER 2019-01-26 15:41 | Outpatient (CLI) | payer MEDICARE ==
[2019-01-26] MEDS ORDERED: Sodium Chloride 0.9% 15 ML NEB ONE (18:00)
== END 2019-01-26 15:42 | disposition home or self-care (01) ==
LOC: WCC 15:41
PROVIDERS: ATTEND Family Medicine
DX: L97.529 Non-pressure chronic ulcer of other part of left foot with unspecified severity (principal)
CPT/HCPCS: A4218

== ENCOUNTER 2019-01-28 14:05 | Outpatient (CLI) | payer MEDICARE ==
[2019-01-28] MEDS ORDERED: Sodium Chloride 0.9% 15 ML NEB ONE (15:00)
--- NOTE | 2019-01-28 15:15 | PRG ---
DATE OF SERVICE: 01/28/2019 SUBJECTIVE: Mr. Kristofer Dorado is a very pleasant 83-year-old gentleman, accompanied by his , who presents to the [facility] for evaluation of an ulceration of the left medial foot in the region of the metatarsophalangeal joint. The patient has completed a course of treatment with MatriStem sheet. Since the patient's last visit, Mr. Dorado underwent aortogram with a left lower extremity runoff by Dr. Martin Coreas on 01/08/2019. The peroneal artery was found to be widely patent to the ankle. 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 Both arteries were found to reconstitute. The patient is presently receiving treatment with EpiFix in conjunction with negative pressure therapy. The patient has no complaints today. He denies any fever or chills. PHYSICAL EXAMINATION: VITAL SIGNS: Temperature 97.8, pulse 66, respirations 17, blood pressure 163/87. Accu-Chek 100. EXTREMITIES: An ulceration of the left foot is present, which measures approximately 1.2 x 1.2 cm. The dimensions of the wound at the time of the patient's visit on 01/13/2019, were approximately 1.4 x 1.4 cm. The ulceration is present in the region of the first metatarsophalangeal joint. Granulation tissue is present within the wound margins. No purulent drainage is associated with the wound. No cellulitis of the left foot is appreciated. No maceration of the skin of the periwound is noted. No significant edema of the left foot is present on exam today. After copious irrigation of the wound bed with normal saline, EpiFix 18 mm was applied to the wound bed of the ulceration followed by the foam of the wound VAC. ASSESSMENT AND PLAN: 1. 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 EpiFix 2 x 2 cm was applied to the wound bed of the ulceration today in conjunction with negative pressure therapy. MRI of the left foot obtained on 09/18/2018 showed no evidence of osteomyelitis. The patient will return to the Wound Center for dressing change in 5 days. 2. Diabetes mellitus. The patient's Accu-Chek in clinic today is 100. The patient has been reminded that for optimal wound healing, his blood glucoses should remain below 150. 3. Atrial fibrillation. 4. Hypertension. 5. Coronary artery disease. 6. Nephrolithiasis. 7. Cerebrovascular accident x2. 8. Transient ischemic attack. 9. Gastroesophageal reflux disease. 10. Gout. 11. Degenerative joint disease. 12. History of deep venous thrombosis and pulmonary embolism. 13. Peripheral vascular disease. 14. Chronic kidney disease, stage 3. Job ID: [id number]
== END 2019-01-28 14:06 | disposition home or self-care (01) ==
LOC: WCC 14:05
PROVIDERS: ATTEND Family Medicine
DX: E11.621 Type 2 diabetes mellitus with foot ulcer (principal); L97.529 Non-pressure chronic ulcer of other part of left foot with unspecified severity; I48.91 Unspecified atrial fibrillation; I25.10 Atherosclerotic heart disease of native coronary artery without angina pectoris; N20.0 Calculus of kidney; K21.9 Gastro-esophageal reflux disease without esophagitis; M10.9 Gout, unspecified; M19.90 Unspecified osteoarthritis, unspecified site; E11.22 Type 2 diabetes mellitus with diabetic chronic kidney disease; I12.9 Hypertensive chronic kidney disease with stage 1 through stage 4 chronic kidney disease, or unspecified chronic kidney disease; E11.51 Type 2 diabetes mellitus with diabetic peripheral angiopathy without gangrene; N18.3 Chronic kidney disease, stage 3 (moderate); Z86.711 Personal history of pulmonary embolism; Z86.718 Personal history of other venous thrombosis and embolism; Z86.73 Personal history of transient ischemic attack (TIA), and cerebral infarction without residual deficits
CPT/HCPCS: 15275; A4218

== ENCOUNTER 2019-02-02 14:15 | Outpatient (CLI) | payer MEDICARE ==
[2019-02-02] MEDS ORDERED: Sodium Chloride 0.9% 15 ML NEB ONE (15:00)
== END 2019-02-02 14:16 | disposition home or self-care (01) ==
LOC: WCC 14:15
PROVIDERS: ATTEND Family Medicine
DX: L97.529 Non-pressure chronic ulcer of other part of left foot with unspecified severity (principal)
CPT/HCPCS: A4218

== ENCOUNTER 2019-02-04 11:19 | Outpatient (CLI) | payer MEDICARE ==
--- NOTE | 2019-02-04 12:18 | PRG ---
DATE OF SERVICE: 02/04/2019 HISTORY: Mr. Kristofer Dorado is a very pleasant 83-year-old gentleman, accompanied by his , who presents to the [facility]ound Center for evaluation of an ulceration of the left medial foot in the region of the metatarsophalangeal joint. The patient has completed a course of treatment with MatriStem sheet. Mr. Dorado underwent aortogram with a left lower extremity runoff by Dr. Martin Coreas on 01/08/2019. The peroneal artery was found to be patent to the ankle. 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 Both arteries were found to reconstitute. The patient is currently receiving treatment with EpiFix in conjunction with negative pressure therapy. The patient has no complaints today. He denies any fever or chills. PHYSICAL EXAMINATION: VITAL SIGNS: Temperature 97.5, pulse 69, respirations 18, and blood pressure 149/78. Accu-Chek 88. EXTREMITIES: An ulceration of the left foot is present, which measures approximately 1.3 x 1.3 cm. The dimensions of the wound at the time of the patient's visit on 01/28/2019, were approximately 1.2 x 1.2 cm. The ulceration is present in the region of the first metatarsophalangeal joint. Granulation tissue is present within the wound margins. No purulent drainage is associated with the wound. No cellulitis of the left foot is appreciated. No maceration of the skin of the periwound is noted. No significant edema of the left foot is present on exam today. After copious irrigation of the wound bed with normal saline, EpiFix 2 x 2 cm was applied to the wound bed of the ulceration followed by the foam of the wound VAC. ASSESSMENT AND PLAN: 1. 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 MRI of the left foot obtained on 09/18/2018, showed no evidence for osteomyelitis. The patient will return to the Wound Center for a dressing change in 6 days. 2. Diabetes mellitus. The patient's Accu-Chek in clinic today is 88. The patient has been reminded that for optimal wound healing, his blood glucoses should remain below 150. 3. Atrial fibrillation. 4. Hypertension. 5. Coronary artery disease. 6. Nephrolithiasis. 7. Transient ischemic attack. 8. Cerebrovascular accident x2. 9. Gastroesophageal reflux disease. 10. Gout. 11. Degenerative joint disease. 12. History of deep venous thrombosis and pulmonary embolism. 13. Peripheral vascular disease. 14. Chronic kidney disease, stage 3. Job ID: [id number]
== END 2019-02-04 11:20 | disposition home or self-care (01) ==
LOC: WCC 11:19
PROVIDERS: ATTEND Family Medicine
DX: E11.621 Type 2 diabetes mellitus with foot ulcer (principal); L97.529 Non-pressure chronic ulcer of other part of left foot with unspecified severity; I12.9 Hypertensive chronic kidney disease with stage 1 through stage 4 chronic kidney disease, or unspecified chronic kidney disease; E11.22 Type 2 diabetes mellitus with diabetic chronic kidney disease; N18.3 Chronic kidney disease, stage 3 (moderate); I48.91 Unspecified atrial fibrillation; I25.10 Atherosclerotic heart disease of native coronary artery without angina pectoris; N20.0 Calculus of kidney; G45.9 Transient cerebral ischemic attack, unspecified; I63.9 Cerebral infarction, unspecified; K21.9 Gastro-esophageal reflux disease without esophagitis; M19.90 Unspecified osteoarthritis, unspecified site; M10.9 Gout, unspecified; I73.9 Peripheral vascular disease, unspecified; Z86.718 Personal history of other venous thrombosis and embolism
CPT/HCPCS: A4218

== ENCOUNTER 2019-02-10 16:26 | Outpatient (CLI) | payer MEDICARE ==
--- NOTE | 2019-02-10 14:18 | PRG ---
DATE OF SERVICE: 02/10/2019 HISTORY: Mr. Kristofer Dorado is a very pleasant 83-year-old gentleman, accompanied by his , who presents to the [facility]ound Center for evaluation of an ulceration of the left medial foot in the region of the metatarsophalangeal joint. The patient has completed a course of treatment with MatriStem sheet. Mr. Dorado underwent aortogram with left lower extremity runoff by Dr. Martin Coreas on 01/08/2019. The peroneal artery was found to be patent to the ankle. 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 Both arteries were found to reconstitute. The patient is presently receiving treatment with EpiFix in conjunction with negative pressure therapy. Mr. Dorado has no complaints today. He denies any fever or chills. PHYSICAL EXAMINATION: VITAL SIGNS: Temperature 97.4, pulse 63, respirations 17, blood pressure 180/81. Accu-Chek 103. EXTREMITIES: An ulceration of the left foot is present, which measures approximately 1.2 x 1.1 cm. The dimensions of the wound at the time of the patient's visit on 02/04/2019 were approximately 1.3 x 1.3 cm. The ulceration is present in the region of the first metatarsophalangeal joint. Granulation tissue is present within the wound margins. No purulent drainage is associated with the wound. No cellulitis of the left foot is appreciated. No maceration of the skin of the periwound is noted. No significant edema of the left foot is present on exam today. ASSESSMENT AND PLAN: 1. 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 MRI of the left foot obtained on 09/18/2018 showed no evidence for osteomyelitis. Negative pressure therapy will be continued with dressing changes of the wound VAC here in the Wound Center. Promogran will be applied to the wound bed at the time of wound VAC dressing changes. 2. Diabetes mellitus. The patient's Accu-Chek in clinic today is 103. The patient has been reminded that for optimal wound healing, his blood glucoses should remain below 150. 3. Atrial fibrillation. 4. Hypertension. 5. Coronary artery disease. 6. Nephrolithiasis. 7. Transient ischemic attack. 8. Cerebrovascular accident x2. 9. Gastroesophageal reflux disease. 10. Gout. 11. Degenerative joint disease. 12. History of deep venous thrombosis and pulmonary embolism. 13. Peripheral vascular disease. 14. Chronic kidney disease stage 3. Job ID: [id number]
[2019-02-10] MEDS ORDERED: Sodium Chloride 0.9% 15 ML NEB ONE (18:00)
== END 2019-02-10 16:27 | disposition home or self-care (01) ==
LOC: WCC 16:26
PROVIDERS: ATTEND Family Medicine
DX: E11.621 Type 2 diabetes mellitus with foot ulcer (principal); L97.529 Non-pressure chronic ulcer of other part of left foot with unspecified severity; I48.91 Unspecified atrial fibrillation; I25.10 Atherosclerotic heart disease of native coronary artery without angina pectoris; N20.0 Calculus of kidney; G45.9 Transient cerebral ischemic attack, unspecified; K21.9 Gastro-esophageal reflux disease without esophagitis; M10.9 Gout, unspecified; M19.90 Unspecified osteoarthritis, unspecified site; E11.51 Type 2 diabetes mellitus with diabetic peripheral angiopathy without gangrene; E11.22 Type 2 diabetes mellitus with diabetic chronic kidney disease; I12.9 Hypertensive chronic kidney disease with stage 1 through stage 4 chronic kidney disease, or unspecified chronic kidney disease; N18.3 Chronic kidney disease, stage 3 (moderate); Z86.718 Personal history of other venous thrombosis and embolism; Z86.711 Personal history of pulmonary embolism; Z86.73 Personal history of transient ischemic attack (TIA), and cerebral infarction without residual deficits
CPT/HCPCS: 29581; A4218

== ENCOUNTER 2019-02-17 14:16 | Outpatient (CLI) | payer MEDICARE ==
--- NOTE | 2019-02-17 14:25 | PRG ---
DATE OF SERVICE: 02/17/2019 HISTORY: Mr. Kristofer Dorado is a very pleasant 83-year-old gentleman, accompanied by his , who presents to the [facility]ound Center for evaluation of an ulceration of the left medial foot in the region of the metatarsophalangeal joint. The patient has completed a course of treatment with MatriStem sheet. Mr. Dorado underwent aortogram with left lower extremity runoff by Dr. Martin Coreas on 01/08/2019. The peroneal artery was found to be patent to the ankle, long segment occlusions of both anterior tibial and posterior tibial arteries were noted. Both arteries were found to reconstitute. The patient is currently receiving treatment with EpiFix in conjunction with negative-pressure therapy. The patient has no complaints today. He denies any fever or chills. PHYSICAL EXAMINATION: VITAL SIGNS: Temperature 97.5, pulse 65, respirations 16, blood pressure 186/82. Accu-Chek 67. EXTREMITIES: An ulceration of the left foot is present, which measures approximately 1.1 x 1.1 cm. The dimensions of the wound at the time of the patient's visit on 02/10/2019 were approximately 1.2 x 1.1 cm. The ulceration is present in the region of the first metatarsophalangeal joint. Granulation tissue is present within the wound margins. No purulent drainage is associated with the wound. No cellulitis of the left foot is appreciated. No maceration of the skin of the periwound is noted. No significant edema of the left foot is present on exam today. ASSESSMENT AND PLAN: 1. 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 MRI of the left foot obtained on 09/18/2018 showed no evidence for osteomyelitis. Negative-pressure therapy will be continued with dressing changes of the wound VAC here in the Wound Center. Promogran will be applied to the wound bed at the time of wound VAC dressing changes. 2. Diabetes mellitus. The patient's Accu-Chek in clinic today is 67. The patient has been reminded that for optimal wound healing, his blood glucoses should remain below 150. 3. Atrial fibrillation. 4. Hypertension. 5. Coronary artery disease. 6. Nephrolithiasis. 7. Transient ischemic attack. 8. Cerebrovascular accident x2. 9. Gastroesophageal reflux disease. 10. Gout. 11. Degenerative joint disease. 12. History of deep venous thrombosis and pulmonary embolism. 13. Peripheral vascular disease. 14. Chronic kidney disease stage 3. Job ID: [id number]
[2019-02-17] MEDS ORDERED: Sodium Chloride 0.9% 15 ML NEB ONE (15:00)
== END 2019-02-17 14:17 | disposition home or self-care (01) ==
LOC: WCC 14:16
PROVIDERS: ATTEND Family Medicine
DX: E11.621 Type 2 diabetes mellitus with foot ulcer (principal); L97.429 Non-pressure chronic ulcer of left heel and midfoot with unspecified severity; I12.9 Hypertensive chronic kidney disease with stage 1 through stage 4 chronic kidney disease, or unspecified chronic kidney disease; E11.22 Type 2 diabetes mellitus with diabetic chronic kidney disease; N18.3 Chronic kidney disease, stage 3 (moderate); I48.91 Unspecified atrial fibrillation; I25.10 Atherosclerotic heart disease of native coronary artery without angina pectoris; N20.0 Calculus of kidney; G45.9 Transient cerebral ischemic attack, unspecified; I63.9 Cerebral infarction, unspecified; K21.9 Gastro-esophageal reflux disease without esophagitis; M19.90 Unspecified osteoarthritis, unspecified site; M10.9 Gout, unspecified; I73.9 Peripheral vascular disease, unspecified; Z86.718 Personal history of other venous thrombosis and embolism
CPT/HCPCS: 29581; 97605; A4218

== ENCOUNTER 2019-02-24 11:20 | Outpatient (CLI) | payer MEDICARE ==
--- NOTE | 2019-02-24 17:25 | PRG ---
DATE OF SERVICE: 02/24/2019 HISTORY: Mr. Kristofer Dorado is a very pleasant 83-year-old gentleman, accompanied by his , who presents to the wound center for evaluation of an ulceration of the left medial foot in the region of the metatarsophalangeal joint. The patient has completed a course of treatment with MatriStem sheet. Mr. Dorado underwent aortogram with left lower extremity runoff by Dr. Martin Coreas on 01/08/2019. The peroneal artery was found to be patent to the ankle. 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 Both arteries were found to reconstitute. The patient also received a course of treatment with EpiFix in conjunction with negative pressure therapy. The patient is now receiving negative pressure therapy alone. The patient has no complaints today. He denies any fever or chills. PHYSICAL EXAMINATION: VITAL SIGNS: Temperature 97.7, pulse 66, respirations 18, and blood pressure 147/79. Accu-Chek 96. EXTREMITIES: An ulceration of the left foot is present, which measures approximately 1.2 x 1.2 cm. The dimensions of the wound at the time of the patient's visit on 02/17/2019 were approximately 1.1 x 1.1 cm. The ulceration is present in the region of the first metatarsophalangeal joint. Granulation tissue is present within the wound margins. No purulent drainage is associated with the wound. No cellulitis of the left foot is appreciated. No maceration of the skin of the periwound is noted. No significant edema of the left foot is present on exam today. ASSESSMENT AND PLAN: 1. 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 MRI of the left foot obtained 09/18/2018 showed no evidence for osteomyelitis. Negative pressure therapy will be continued with dressing changes of the wound VAC here in the wound center. I will see Mr. Dorado again in 1 week. 2. Diabetes mellitus. The patient's Accu-Chek in clinic today is 96. The patient has been reminded that for optimal wound healing, his blood glucoses should remain below 150. 3. Atrial fibrillation. 4. Hypertension. 5. Coronary artery disease. 6. Nephrolithiasis. 7. Transient ischemic attack. 8. Cerebrovascular accident x2. 9. Gastroesophageal reflux disease. 10. Gout. 11. Degenerative joint disease. 12. History of deep venous thrombosis and pulmonary embolism. 13. Peripheral vascular disease. 14. Chronic kidney disease stage 3. Job ID: [id number]
== END 2019-02-24 11:21 | disposition home or self-care (01) ==
LOC: WCC 11:20
PROVIDERS: ATTEND Family Medicine
DX: E11.621 Type 2 diabetes mellitus with foot ulcer (principal); L97.529 Non-pressure chronic ulcer of other part of left foot with unspecified severity; I12.9 Hypertensive chronic kidney disease with stage 1 through stage 4 chronic kidney disease, or unspecified chronic kidney disease; N18.3 Chronic kidney disease, stage 3 (moderate); I48.91 Unspecified atrial fibrillation; I63.9 Cerebral infarction, unspecified; G45.9 Transient cerebral ischemic attack, unspecified; N20.0 Calculus of kidney; I73.9 Peripheral vascular disease, unspecified; M19.90 Unspecified osteoarthritis, unspecified site; M10.9 Gout, unspecified; K21.9 Gastro-esophageal reflux disease without esophagitis; I25.10 Atherosclerotic heart disease of native coronary artery without angina pectoris; Z86.718 Personal history of other venous thrombosis and embolism
CPT/HCPCS: 29581; 97605; A4218

== ENCOUNTER 2019-03-03 11:23 | Outpatient (CLI) | payer MEDICARE ==
--- NOTE | 2019-03-03 13:19 | PRG ---
DATE OF SERVICE: 03/03/2019 SUBJECTIVE: Mr. Kristofer Dorado is a very pleasant 83-year-old gentleman, accompanied by his , who presents to the Wound Center for evaluation of an ulceration of the left medial foot in the region of the metatarsophalangeal joint. The patient has completed a course of treatment with MatriStem sheet. Mr. Dorado underwent aortogram with left lower extremity runoff by Dr. Martin Coreas on 01/08/2019. The peroneal artery was found to be patent to the ankle. 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 Both arteries were found to reconstitute. The patient also received a course of treatment with EpiFix in conjunction with negative pressure therapy. Currently, the patient is receiving negative pressure therapy alone. Mr. Dorado has no complaints today. He denies any fever or chills. OBJECTIVE: VITAL SIGNS: Temperature 97.7, pulse 65, respirations 18, blood pressure 167/76. Accu-Chek 66. EXTREMITIES: An ulceration of the left foot is present, which measures approximately 1.2 x 1.2 cm. The dimensions of the wound at the time of the patient's visit on 02/24/2019 were also approximately 1.2 x 1.2 cm. The ulceration is present in the region of the first metatarsophalangeal joint. Granulation tissue is present within the wound margins. No purulent drainage is associated with the wound. No cellulitis of the left foot is appreciated. No maceration of the skin of the periwound is noted. No significant edema of the left foot is present on exam today. ASSESSMENT AND PLAN: 1. 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 MRI of the left foot obtained on 09/18/2018 showed no evidence for osteomyelitis. MRI of the left foot without contrast will be obtained again in 2 weeks again to look for findings suggestive of osteomyelitis. The dimensions of the wound have increased since the patient's visit on 02/17/2019, negative pressure therapy will be continued with dressing changes of the wound VAC here in the Wound Center. Promogran will be applied to the wound bed at the time of wound VAC dressing changes. The patient will be seen by Dr. De La Garza in 1 week. The patient will return to the Wound Center in 2 weeks for a dressing change in addition to MRI of the left foot without contrast. I will see Mr. Dorado again in 3 weeks. The patient and his understand and are in agreement with the preceding treatment plan. 2. Diabetes mellitus. The patient's Accu-Chek in clinic today is 66. The patient has been reminded that for optimal wound healing, his blood glucoses should remain below 150. 3. Atrial fibrillation. 4. Hypertension. 5. Coronary artery disease. 6. Nephrolithiasis. 7. Transient ischemic attack. 8. Cerebrovascular accident x2. 9. Gastroesophageal reflux disease. 10. Gout. 11. Degenerative joint disease. 12. History of deep venous thrombosis and pulmonary embolism. 13. Peripheral vascular disease. 14. Chronic kidney disease, stage 3. Job ID: [id number]
[2019-03-03] MEDS ORDERED: Sodium Chloride 0.9% 15 ML NEB ONE (15:00)
== END 2019-03-03 11:24 | disposition home or self-care (01) ==
LOC: WCC 11:23
PROVIDERS: ATTEND Family Medicine
DX: E11.621 Type 2 diabetes mellitus with foot ulcer (principal); L97.529 Non-pressure chronic ulcer of other part of left foot with unspecified severity; I48.91 Unspecified atrial fibrillation; M10.9 Gout, unspecified; M19.90 Unspecified osteoarthritis, unspecified site; I12.9 Hypertensive chronic kidney disease with stage 1 through stage 4 chronic kidney disease, or unspecified chronic kidney disease; N18.3 Chronic kidney disease, stage 3 (moderate); E11.22 Type 2 diabetes mellitus with diabetic chronic kidney disease; E11.51 Type 2 diabetes mellitus with diabetic peripheral angiopathy without gangrene; I25.10 Atherosclerotic heart disease of native coronary artery without angina pectoris; N20.0 Calculus of kidney; Z86.73 Personal history of transient ischemic attack (TIA), and cerebral infarction without residual deficits
CPT/HCPCS: 97602; A4218

== ENCOUNTER 2019-03-09 14:11 | Outpatient (CLI) | payer MEDICARE | END 2019-03-09 14:12 | disposition home or self-care (01) | LOC: WCC 14:11 | PROVIDERS: ATTEND Family Medicine | DX: L97.529 Non-pressure chronic ulcer of other part of left foot with unspecified severity (principal) | CPT/HCPCS: 97605; A4218 ==

== ENCOUNTER 2019-03-16 14:37 | Outpatient (CLI) | payer MEDICARE | END 2019-03-16 14:38 | disposition home or self-care (01) | LOC: WCC 14:37 | PROVIDERS: ATTEND Family Medicine | DX: L97.529 Non-pressure chronic ulcer of other part of left foot with unspecified severity (principal) | CPT/HCPCS: A4218 ==

== ENCOUNTER 2019-03-24 15:40 | Outpatient (CLI) | payer MEDICARE ==
[~2019-03-24 15:40] MED LIST changes: +Lidocaine 2% PF 100 mg/5 ml Syringe ONE
--- NOTE | 2019-03-24 16:36 | PRG ---
DATE OF SERVICE: 03/24/2019 HISTORY: Mr. Kristofer Dorado is a very pleasant 83-year-old gentleman, accompanied by his , who presents to the [facility]ound Center for evaluation of an ulceration of the left medial foot in the region of the metatarsophalangeal joint. The patient has completed a course of treatment with MatriStem sheet. Mr. Dorado underwent aortogram with left lower extremity runoff by Dr. Martin Coreas on 01/08/2019. The peroneal artery was found to be patent to the ankle. 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 Both arteries were found to reconstitute. The patient also received a course of treatment with EpiFix in conjunction with negative pressure therapy. Presently, the patient is receiving negative pressure therapy alone. The patient has no complaints today. He denies any fever or chills. PHYSICAL EXAMINATION: VITAL SIGNS: Temperature 97.5, pulse 56, respirations 18, and blood pressure 157/77. Accu-Chek 131. EXTREMITIES: An ulceration of the left foot was present, which measured approximately 1.0 x 0.8 cm. The dimensions of the wound at the time of the patient's visit on 03/03/2019, were approximately 1.2 x 1.2 cm. The ulceration was present in the region of the first metatarsophalangeal joint. Granulation tissue was present within the wound margins. No purulent drainage was associated with the wound. No cellulitis of the left foot was appreciated. No maceration of the skin of the periwound was noted. No significant edema of the left foot was present on exam today. ASSESSMENT AND PLAN: 1. 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 MRI of the left foot obtained on 03/16/2019, showed no evidence for osteomyelitis. Negative pressure therapy will be continued with dressing changes of the wound VAC here in the Wound Center. Promogran will be applied to the wound bed at the time of wound VAC dressing changes. I will see Mr. Dorado again in 1 week. 2. Diabetes mellitus. The patient's Accu-Chek in clinic today is 131. The patient has been reminded that for optimal wound healing, his blood glucoses should remain below 150. 3. Atrial fibrillation. 4. Hypertension. 5. Coronary artery disease. 6. Nephrolithiasis. 7. Transient ischemic attack. 8. Cerebrovascular accident x2. 9. Gastroesophageal reflux disease. 10. Gout. 11. Degenerative joint disease. 12. History of deep venous thrombosis and pulmonary embolism. 13. Peripheral vascular disease. 14. Chronic kidney disease, stage 3. Job ID: [id number]
== END 2019-03-24 15:41 | disposition home or self-care (01) ==
LOC: WCC 15:40
PROVIDERS: ATTEND Family Medicine
DX: E11.621 Type 2 diabetes mellitus with foot ulcer (principal); L97.529 Non-pressure chronic ulcer of other part of left foot with unspecified severity; I48.91 Unspecified atrial fibrillation; I25.10 Atherosclerotic heart disease of native coronary artery without angina pectoris; N20.0 Calculus of kidney; Z86.73 Personal history of transient ischemic attack (TIA), and cerebral infarction without residual deficits; K21.9 Gastro-esophageal reflux disease without esophagitis; M10.9 Gout, unspecified; M19.90 Unspecified osteoarthritis, unspecified site; E11.51 Type 2 diabetes mellitus with diabetic peripheral angiopathy without gangrene; I12.9 Hypertensive chronic kidney disease with stage 1 through stage 4 chronic kidney disease, or unspecified chronic kidney disease; N18.3 Chronic kidney disease, stage 3 (moderate); E11.22 Type 2 diabetes mellitus with diabetic chronic kidney disease
CPT/HCPCS: 97605; A4218; J2001

== ENCOUNTER 2019-03-31 11:05 | Outpatient (CLI) | payer MEDICARE ==
--- NOTE | 2019-03-31 13:10 | PRG ---
DATE OF SERVICE: 03/31/2019 SUBJECTIVE: Mr. Kristofer Dorado is a very pleasant 83-year-old gentleman, accompanied by his , who presents to the wound center for evaluation of an ulceration of the left medial foot in the region of the metatarsophalangeal joint. The patient has completed a course of treatment with MatriStem sheet. Mr. Dorado underwent aortogram with left lower extremity runoff by Dr. Martin Coreas on 01/08/2019. The peroneal artery was found to be patent to the ankle. 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 Both arteries were found to reconstitute. The patient also received a course of treatment with EpiFix in conjunction with negative pressure therapy. Currently, the patient is receiving negative pressure therapy alone. Mr. Dorado has no complaints today. He denies any fever or chills. PHYSICAL EXAMINATION: VITAL SIGNS: Temperature 97.4, pulse 63, respirations 24, and blood pressure 156/73. Accu-Chek 140. EXTREMITIES: An ulceration of the left foot is present, which measures approximately 0.9 x 0.8 cm. The dimensions of the wound at the time of the patient's visit on 03/24/2019 were approximately 1.0 x 0.8 cm. The ulceration is present in the region of the first metatarsophalangeal joint. Granulation tissue is present within the wound margins. Nonviable tissue present within the wound margins was debrided with an excisional full-thickness debridement with the use of a curette. No purulent drainage is associated with the wound. No cellulitis of the left foot is appreciated. No maceration of the skin of the periwound is noted. No significant edema of the left foot is present on exam today. Postdebridement measurements are approximately 0.8 x 1.0 cm. ASSESSMENT AND PLAN: 1. 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 MRI of the left foot obtained on 03/16/2019 showed no evidence for osteomyelitis. Negative pressure therapy will be continued with dressing changes of the wound VAC here in the wound center. Promogran will be applied to the wound bed at the time of wound VAC dressing changes. I will see Mr. Dorado again in 1 week. 2. Diabetes mellitus. The patient's Accu-Chek in clinic today is 140. The patient has been reminded that for optimal wound healing, his blood glucoses should remain below 150. 3. Atrial fibrillation. 4. Hypertension. 5. Coronary artery disease. 6. Nephrolithiasis. 7. Transient ischemic attack. 8. Cerebrovascular accident x2. 9. Gastroesophageal reflux disease. 10. Gout. 11. Degenerative joint disease. 12. History of deep venous thrombosis and pulmonary embolism. 13. Peripheral vascular disease. 14. Chronic kidney disease, stage 3. Job ID: [id number]
== END 2019-03-31 11:06 | disposition home or self-care (01) ==
LOC: WCC 11:05
PROVIDERS: ATTEND Family Medicine
DX: E11.621 Type 2 diabetes mellitus with foot ulcer (principal); L97.529 Non-pressure chronic ulcer of other part of left foot with unspecified severity; I48.91 Unspecified atrial fibrillation; I25.10 Atherosclerotic heart disease of native coronary artery without angina pectoris; N20.0 Calculus of kidney; G45.9 Transient cerebral ischemic attack, unspecified; K21.9 Gastro-esophageal reflux disease without esophagitis; M10.9 Gout, unspecified; M19.90 Unspecified osteoarthritis, unspecified site; E11.51 Type 2 diabetes mellitus with diabetic peripheral angiopathy without gangrene; E11.22 Type 2 diabetes mellitus with diabetic chronic kidney disease; I12.9 Hypertensive chronic kidney disease with stage 1 through stage 4 chronic kidney disease, or unspecified chronic kidney disease; N18.3 Chronic kidney disease, stage 3 (moderate); Z86.718 Personal history of other venous thrombosis and embolism; Z86.73 Personal history of transient ischemic attack (TIA), and cerebral infarction without residual deficits

== ENCOUNTER 2019-04-07 11:11 | Outpatient (CLI) | payer MEDICARE ==
--- NOTE | 2019-04-07 16:53 | PRG ---
DATE OF SERVICE: 04/07/2019 HISTORY: Mr. Kristofer Dorado is a very pleasant 83-year-old gentleman, accompanied by his , who presents to the Wound Center for evaluation of an ulceration of the left medial foot in the region of the metatarsophalangeal joint. The patient completed a course of treatment with MatriStem sheet. Mr. Dorado underwent aortogram with left lower extremity runoff by Dr. Martin Coreas on 01/08/2019. The peroneal artery was found to be patent to the ankle. 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 Both arteries were found to reconstitute. The patient also received a course of treatment with EpiFix in conjunction with negative pressure therapy. Presently, the patient is receiving negative pressure therapy alone. Promogran, however, is applied to the wound bed at the time of dressing changes. The patient has no complaints today. He denies any fever or chills. PHYSICAL EXAMINATION: VITAL SIGNS: Temperature 97.5, pulse 62, respirations 17, blood pressure 164/87. Accu-Chek 94. EXTREMITIES: An ulceration of the left foot is present, which measures approximately 0.9 x 0.7 cm. The dimensions of the wound at the time of the patient's visit on 03/31/2019, were approximately 0.9 x 0.8 cm. The ulceration is present in the region of the first metatarsophalangeal joint. Granulation tissue is present within the wound margins. No purulent drainage is associated with the wound. No cellulitis of the left foot is appreciated. No maceration of the skin of the periwound is noted. No significant edema of the left foot is present on exam today. ASSESSMENT AND PLAN: 1. 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 MRI of the left foot obtained on 03/16/2019, showed no evidence for osteomyelitis. Negative pressure therapy will be continued with dressing changes of the wound VAC here in the Wound Center. Promogran will be continued to the wound bed at the time of wound VAC dressing changes. I will see Mr. Dorado again in 1 week. 2. Diabetes mellitus. The patient's Accu-Chek in clinic today is 94. The patient has been reminded that for optimal wound healing, his blood glucoses should remain below 150. 3. Atrial fibrillation. 4. Hypertension. 5. Coronary artery disease. 6. Nephrolithiasis. 7. Transient ischemic attack. 8. Cerebrovascular accident x2. 9. Gastroesophageal reflux disease. 10. Gout. 11. Degenerative joint disease. 12. History of deep venous thrombosis and pulmonary embolism. 13. Peripheral vascular disease. 14. Chronic kidney disease, stage 3. Job ID: [id number]
== END 2019-04-07 11:12 | disposition home or self-care (01) ==
LOC: WCC 11:11
PROVIDERS: ATTEND Family Medicine
DX: E11.621 Type 2 diabetes mellitus with foot ulcer (principal); L97.429 Non-pressure chronic ulcer of left heel and midfoot with unspecified severity; I48.91 Unspecified atrial fibrillation; I12.9 Hypertensive chronic kidney disease with stage 1 through stage 4 chronic kidney disease, or unspecified chronic kidney disease; I25.10 Atherosclerotic heart disease of native coronary artery without angina pectoris; N20.0 Calculus of kidney; K21.9 Gastro-esophageal reflux disease without esophagitis; M10.9 Gout, unspecified; M19.90 Unspecified osteoarthritis, unspecified site; E11.51 Type 2 diabetes mellitus with diabetic peripheral angiopathy without gangrene; E11.22 Type 2 diabetes mellitus with diabetic chronic kidney disease; N18.3 Chronic kidney disease, stage 3 (moderate); Z86.73 Personal history of transient ischemic attack (TIA), and cerebral infarction without residual deficits
CPT/HCPCS: 29581

== ENCOUNTER 2019-04-14 11:14 | Outpatient (CLI) | payer MEDICARE ==
--- NOTE | 2019-04-14 13:15 | PRG ---
DATE OF SERVICE: 04/14/2019 HISTORY: Mr. Kristofer Dorado is a very pleasant 83-year-old gentleman, accompanied by his , who presents to the [facility] for evaluation of an ulceration of the left medial foot in the region of the metatarsophalangeal joint. The patient completed a course of treatment with MatriStem sheet. Mr. Dorado underwent aortogram with left lower extremity runoff by Dr. Martin Coreas on 01/08/2019. The peroneal artery was found to be patent to the ankle. 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 Both arteries were found to reconstitute. The patient also received a course of treatment with EpiFix in conjunction with negative pressure therapy. Presently, the patient is receiving negative pressure therapy alone. Promogran, however, is applied to the wound bed at the time of dressing changes. Mr. Dorado has no complaints today. He denies any fever or chills. PHYSICAL EXAMINATION: VITAL SIGNS: Temperature 97.6, pulse 60, respirations 18, blood pressure 170/88. Accu-Chek 117. EXTREMITIES: An ulceration of the left foot is present, which measures approximately 1.0 x 0.6 cm. The dimensions of the wound at the time of the patient's visit on 04/07/2019, were approximately 0.9 x 0.7 cm. The ulceration is present in the region of the first metatarsophalangeal joint. Granulation tissue is present within the wound margins. No purulent drainage is associated with the wound. No cellulitis of the left foot is appreciated. No maceration of the skin of the periwound is noted. No significant edema of the left foot is present on exam today. ASSESSMENT AND PLAN: 1. 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 MRI of the left foot obtained on 03/16/2019, showed no evidence for osteomyelitis. Negative pressure therapy will be continued with dressing changes of the wound VAC here in the Wound Center. Promogran will be continued to the wound bed at the time of wound VAC dressing changes. I will see Mr. Dorado again in 1 week. 2. Diabetes mellitus. The patient's Accu-Chek in clinic today is 117. The patient has been reminded that for optimal wound healing, his blood glucoses should remain below 150. 3. Atrial fibrillation. 4. Hypertension. 5. Coronary artery disease. 6. Nephrolithiasis. 7. Transient ischemic attack. 8. Cerebrovascular accident x2. 9. Gastroesophageal reflux disease. 10. Gout. 11. Degenerative joint disease. 12. History of deep venous thrombosis and pulmonary embolism. 13. Peripheral vascular disease. 14. Chronic kidney disease, stage 3. Job ID: [id number]
[2019-04-14] MEDS ORDERED: Sodium Chloride 0.9% 15 ML NEB ONE (18:00)
== END 2019-04-14 11:15 | disposition home or self-care (01) ==
LOC: WCC 11:14
PROVIDERS: ATTEND Family Medicine
DX: E11.621 Type 2 diabetes mellitus with foot ulcer (principal); L97.529 Non-pressure chronic ulcer of other part of left foot with unspecified severity; I48.91 Unspecified atrial fibrillation; I12.9 Hypertensive chronic kidney disease with stage 1 through stage 4 chronic kidney disease, or unspecified chronic kidney disease; I25.10 Atherosclerotic heart disease of native coronary artery without angina pectoris; K21.9 Gastro-esophageal reflux disease without esophagitis; E11.51 Type 2 diabetes mellitus with diabetic peripheral angiopathy without gangrene; E11.22 Type 2 diabetes mellitus with diabetic chronic kidney disease; N18.3 Chronic kidney disease, stage 3 (moderate); M19.90 Unspecified osteoarthritis, unspecified site; M10.9 Gout, unspecified; Z86.73 Personal history of transient ischemic attack (TIA), and cerebral infarction without residual deficits
CPT/HCPCS: 29581; A4218

== ENCOUNTER 2019-04-28 15:59 | Outpatient (CLI) | payer MEDICARE ==
--- NOTE | 2019-04-28 13:18 | PRG ---
DATE OF SERVICE: 04/28/2019 HISTORY: Mr. Kristofer Dorado is a very pleasant 83-year-old gentleman, accompanied by his , who presents to the [facility] Center for evaluation of an ulceration of the left medial foot in the region of the metatarsophalangeal joint. The patient completed a course of treatment with MatriStem sheet. Mr. Dorado underwent aortogram with left lower extremity runoff by Dr. Martin Coreas on 01/08/2019. The peroneal artery was found to be patent to the ankle. 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 Both arteries were found to reconstitute. The patient also received a course of treatment with EpiFix in conjunction with negative pressure therapy. Presently, the patient is receiving negative pressure therapy alone. Promogran, however, is applied to the wound bed at the time of dressing changes. Mr. Dorado has no complaints today. He denies any fever or chills. PHYSICAL EXAMINATION: VITAL SIGNS: Temperature 97.6, pulse 65, respirations 18, blood pressure 169/83. Accu-Chek 105. EXTREMITIES: An ulceration of the left foot is present, which measures approximately 0.9 x 0.7 cm. The dimensions of the wound at the time of the patient's visit on 04/21/2019, were approximately 0.9 x 0.8 cm. Granulation tissue is present within the wound margins. A sample of granulation tissue was excised with the use of scissors and sent for aerobic and anaerobic cultures. No purulent drainage is associated with the wound. No cellulitis of the left foot is appreciated. No maceration of the skin of the periwound is noted. No significant edema of the left foot is present on exam today. ASSESSMENT AND PLAN: 1. 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 MRI of the left foot obtained on 03/16/2019, showed no evidence for osteomyelitis. Negative pressure therapy will be continued with dressing changes of the wound VAC here in the Wound Center. Promogran will be continued to the wound bed at the time of wound VAC dressing changes. Mr. Dorado will return to the Wound Center in 1 week for a dressing change of the wound VAC. I will see Mr. Dorado again in 2 weeks. At this time, consideration will be given to the initiation of Santyl in conjunction with negative pressure therapy. 2. Diabetes mellitus. The patient's Accu-Chek in clinic today is 105. The patient has been reminded that for optimal wound healing, his blood glucoses should remain below 150. 3. Atrial fibrillation. 4. Hypertension. 5. Coronary artery disease. 6. Nephrolithiasis. 7. Transient ischemic attack. 8. Cerebrovascular accident x2. 9. Gastroesophageal reflux disease. 10. Gout. 11. Degenerative joint disease. 12. History of deep venous thrombosis and pulmonary embolism. 13. Peripheral vascular disease. 14. Chronic kidney disease, stage 3. Job ID: [id number]
[~2019-04-28 15:59] MED LIST changes: -Lidocaine 2% PF 100 mg/5 ml Syringe ONE
== END 2019-04-28 16:00 | disposition home or self-care (01) ==
LOC: WCC 15:59
PROVIDERS: ATTEND Family Medicine
DX: E11.621 Type 2 diabetes mellitus with foot ulcer (principal); L97.529 Non-pressure chronic ulcer of other part of left foot with unspecified severity; I48.91 Unspecified atrial fibrillation; I12.9 Hypertensive chronic kidney disease with stage 1 through stage 4 chronic kidney disease, or unspecified chronic kidney disease; E11.22 Type 2 diabetes mellitus with diabetic chronic kidney disease; N18.3 Chronic kidney disease, stage 3 (moderate); I25.10 Atherosclerotic heart disease of native coronary artery without angina pectoris; N20.0 Calculus of kidney; G45.9 Transient cerebral ischemic attack, unspecified; I63.9 Cerebral infarction, unspecified; K21.9 Gastro-esophageal reflux disease without esophagitis; M10.9 Gout, unspecified; M19.90 Unspecified osteoarthritis, unspecified site; I73.9 Peripheral vascular disease, unspecified; Z86.711 Personal history of pulmonary embolism; Z86.718 Personal history of other venous thrombosis and embolism
CPT/HCPCS: 87070; 87205; A4218

== ENCOUNTER 2019-05-05 11:23 | Outpatient (CLI) | payer MEDICARE | END 2019-05-05 11:24 | disposition home or self-care (01) | LOC: WCC 11:23 | PROVIDERS: ATTEND Family Medicine | DX: L97.429 Non-pressure chronic ulcer of left heel and midfoot with unspecified severity (principal) | CPT/HCPCS: 29581 ==

== ENCOUNTER 2019-05-12 11:09 | Outpatient (CLI) | payer MEDICARE ==
--- NOTE | 2019-05-12 17:34 | PRG ---
DATE OF SERVICE: 05/12/2019 HISTORY: Mr. Kristofer Dorado is a very pleasant 83-year-old gentleman, accompanied by his , who presents to the [facility]ound Center for evaluation of an ulceration of the left medial foot in the region of the metatarsophalangeal joint. The patient completed a course of treatment with MatriStem sheet. Mr. Dorado underwent aortogram with left lower extremity runoff by Dr. Martin Coreas on 01/08/2019. The peroneal artery was found to be patent to the ankle. 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 Both arteries were found to reconstitute. The patient also received a course of treatment with EpiFix in conjunction with negative pressure therapy. Currently, the patient is receiving negative pressure therapy. Santyl, however, is applied to the wound bed at the time of dressing changes. The patient has no complaints today. He denies any fever or chills. PHYSICAL EXAMINATION: VITAL SIGNS: Temperature 97.6, pulse 63, respirations 19, and blood pressure 184/93. Accu-Chek 99. EXTREMITIES: An ulceration of the left foot is present, which measures approximately 0.9 x 0.6 cm. The dimensions of the wound at the time of the patient's visit on 04/28/2019 were approximately 0.9 x 0.7 cm. Granulation tissue is present within the wound margins. Nonviable tissue present within the wound margins was debrided with an excisional full-thickness debridement with the use of a curette. No purulent drainage is associated with the wound. No cellulitis of the left foot is appreciated. No maceration of the skin of the periwound is noted. No significant edema of the left foot is present on exam today. ASSESSMENT AND PLAN: 1. 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 MRI of the left foot obtained on 03/16/2019 showed no evidence for osteomyelitis. Negative pressure therapy will be continued with dressing changes of the wound VAC here in the Wound Center. Santyl will be continued to the wound bed at the time of wound VAC dressing changes. I will see Mr. Dorado again in 1 week. The patient has been given a prescription for clindamycin 300 mg, #30, one p.o. t.i.d. x10 days. Cultures obtained at the time of the patient's last visit revealed the growth of Peptostreptococcus asaccharolyticus and Actinomyces turicensis. 2. Diabetes mellitus. The patient's Accu-Chek in clinic today is 99. The patient has been reminded that for optimal wound healing, his blood glucoses should remain below 150. 3. Atrial fibrillation. 4. Hypertension. 5. Coronary artery disease. 6. Nephrolithiasis. 7. Transient ischemic attack. 8. Cerebrovascular accident x2. 9. Gastroesophageal reflux disease. 10. Gout. 11. Degenerative joint disease. 12. History of deep venous thrombosis and pulmonary embolism. 13. Peripheral vascular disease. 14. Chronic kidney disease, stage 3. Job ID: [id number]
== END 2019-05-12 11:10 | disposition home or self-care (01) ==
LOC: WCC 11:09
PROVIDERS: ATTEND Family Medicine
DX: E11.621 Type 2 diabetes mellitus with foot ulcer (principal); E11.22 Type 2 diabetes mellitus with diabetic chronic kidney disease; L97.529 Non-pressure chronic ulcer of other part of left foot with unspecified severity; I12.9 Hypertensive chronic kidney disease with stage 1 through stage 4 chronic kidney disease, or unspecified chronic kidney disease; N18.3 Chronic kidney disease, stage 3 (moderate); I48.91 Unspecified atrial fibrillation; I25.10 Atherosclerotic heart disease of native coronary artery without angina pectoris; N20.0 Calculus of kidney; G45.9 Transient cerebral ischemic attack, unspecified; I63.9 Cerebral infarction, unspecified; K21.9 Gastro-esophageal reflux disease without esophagitis; M10.9 Gout, unspecified; M19.90 Unspecified osteoarthritis, unspecified site; I73.9 Peripheral vascular disease, unspecified; Z86.718 Personal history of other venous thrombosis and embolism; Z86.711 Personal history of pulmonary embolism
CPT/HCPCS: 29581; A4218

== ENCOUNTER 2019-05-19 13:17 | Outpatient (CLI) | payer MEDICARE ==
--- NOTE | 2019-05-19 15:01 | PRG ---
DATE OF SERVICE: 05/19/2019 HISTORY: Mr. Kristofer Dorado is a very pleasant 83-year-old gentleman, accompanied by his who presents to the wound center for evaluation of an ulceration of the left medial foot in the region of the metatarsophalangeal joint. The patient completed a course of treatment with MatriStem sheet. Mr. Dorado underwent aortogram with left lower extremity runoff by Dr. Martin Coreas on 01/08/2019. The peroneal artery was found to be patent to the ankle. 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 Both arteries were found to reconstitute. Presently, the patient is receiving negative pressure therapy. Santyl; however, is applied to the wound bed at the time of dressing changes. Mr. Dorado has no complaints today. He denies any fever or chills. PHYSICAL EXAMINATION: VITAL SIGNS: Temperature 97.5, pulse 59, respirations 24, blood pressure 183/87. Accu-Chek 87. EXTREMITIES: An ulceration of the left foot is present which measures approximately 0.9 x 0.7 cm. The dimensions of the wound at the time of the patient's visit on 05/12/2019 were approximately 0.9 x 0.6 cm. Granulation tissue is present within the wound margins. Nonviable tissue present within the wound margins was debrided with an excisional full-thickness debridement with the use of a curette and scissors. No purulent drainage is associated with the wound. No cellulitis of the left foot is appreciated. No maceration of the skin of the periwound is noted. No significant edema of the left foot is present on exam today. ASSESSMENT AND PLAN: 1. 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 MRI of the left foot obtained on 03/16/2019 showed no evidence for osteomyelitis. Negative pressure therapy will be continued with dressing changes of the wound vacuum assisted closure here in the Wound Center. Santyl will be continued to the wound bed at the time of wound vacuum assisted closure dressing changes. I will see Mr. Dorado again in 1 week. The patient was previously given a prescription for clindamycin 300 mg, #30, one p.o. t.i.d. x10 days, which he is taking as prescribed. Cultures obtained previously revealed the growth of Peptostreptococcus asaccharolyticus and Actinomyces turicensis. 2. Diabetes mellitus. The patient's Accu-Chek in clinic today is 87. The patient has been reminded that for optimal wound healing, his blood glucoses should remain below 150. 3. Atrial fibrillation. 4. Hypertension. 5. Coronary artery disease. 6. Nephrolithiasis. 7. Transient ischemic attack. 8. Cerebrovascular accident x2. 9. Gastroesophageal reflux disease. 10. Gout. 11. Degenerative joint disease. 12. History of deep venous thrombosis and pulmonary embolism. 13. Peripheral vascular disease. 14. Chronic kidney disease stage 3. Job ID: [id number]
== END 2019-05-19 13:18 | disposition home or self-care (01) ==
LOC: WCC 13:17
PROVIDERS: ATTEND Family Medicine
DX: E11.621 Type 2 diabetes mellitus with foot ulcer (principal); L97.529 Non-pressure chronic ulcer of other part of left foot with unspecified severity; I48.91 Unspecified atrial fibrillation; I12.9 Hypertensive chronic kidney disease with stage 1 through stage 4 chronic kidney disease, or unspecified chronic kidney disease; I25.10 Atherosclerotic heart disease of native coronary artery without angina pectoris; N20.0 Calculus of kidney; G45.9 Transient cerebral ischemic attack, unspecified; K21.9 Gastro-esophageal reflux disease without esophagitis; M10.9 Gout, unspecified; M19.90 Unspecified osteoarthritis, unspecified site; E11.51 Type 2 diabetes mellitus with diabetic peripheral angiopathy without gangrene; E11.22 Type 2 diabetes mellitus with diabetic chronic kidney disease; N18.3 Chronic kidney disease, stage 3 (moderate)
CPT/HCPCS: 29581; A4218

== ENCOUNTER 2019-05-26 11:11 | Outpatient (CLI) | payer MEDICARE ==
--- NOTE | 2019-05-26 13:11 | PRG ---
DATE OF SERVICE: 05/26/2019 HISTORY: Mr. Kristofer Dorado is a very pleasant 83-year-old gentleman, accompanied by his who presents to the Wound Center for evaluation of an ulceration of the left medial foot in the region of the metatarsophalangeal joint. The patient completed a course of treatment with MatriStem sheet. Mr. Dorado underwent aortogram with left lower extremity runoff by Dr. Martin Coreas on 01/08/2019. The peroneal artery was found to be patent to the ankle. 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 Both arteries were found to reconstitute. Currently, the patient is receiving negative pressure therapy. Santyl, however, is being applied to the wound bed at the time of dressing changes. The patient has no complaints today. He denies any fever or chills. PHYSICAL EXAMINATION: VITAL SIGNS: Temperature 97.6, pulse 55, respirations 20, and blood pressure 150/78. Accu-Chek 76. EXTREMITIES: An ulceration of the left foot is present, which measures approximately 0.9 x 0.7 cm. The dimensions of the wound at the time of the patient's visit on 05/19/2019 were approximately 0.9 x 0.7 cm also. Granulation tissue is present within the wound margins. Desiccated tissue at the periphery of the wound was excised with the use of scissors. No purulent drainage is associated with the wound. No cellulitis of the left foot is appreciated. No maceration of the skin of the periwound is noted. No significant edema of the left foot is present on exam today. ASSESSMENT AND PLAN: 1. 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 MRI of the left foot obtained on 03/16/2019 showed no evidence for osteomyelitis. Negative pressure therapy will be discontinued today. Dressing changes of Santyl will be initiated. These dressing changes are to be performed on a daily basis after cleansing and irrigation with the assistance of the patient's . I will see Mr. Dorado again in 2 weeks. 2. Diabetes mellitus. The patient's Accu-Chek in clinic today is 76. The patient has been reminded that for optimal wound healing, his blood glucoses should remain below 150. 3. Atrial fibrillation. 4. Hypertension. 5. Coronary artery disease. 6. Nephrolithiasis. 7. Transient ischemic attack. 8. Cerebrovascular accident x2. 9. Gastroesophageal reflux disease. 10. Gout. 11. Degenerative joint disease. 12. History of deep venous thrombosis and pulmonary embolism. 13. Peripheral vascular disease. 14. Chronic kidney disease, stage 3. Job ID: [id number]
[2019-05-26] MEDS ORDERED: Sodium Chloride 0.9% 15 ML NEB ONE (15:00)
== END 2019-05-26 11:12 | disposition home or self-care (01) ==
LOC: WCC 11:11
PROVIDERS: ATTEND Family Medicine
DX: E11.621 Type 2 diabetes mellitus with foot ulcer (principal); L97.529 Non-pressure chronic ulcer of other part of left foot with unspecified severity; I48.91 Unspecified atrial fibrillation; I25.10 Atherosclerotic heart disease of native coronary artery without angina pectoris; N20.0 Calculus of kidney; G45.9 Transient cerebral ischemic attack, unspecified; K21.9 Gastro-esophageal reflux disease without esophagitis; M10.9 Gout, unspecified; M19.90 Unspecified osteoarthritis, unspecified site; E11.51 Type 2 diabetes mellitus with diabetic peripheral angiopathy without gangrene; I12.9 Hypertensive chronic kidney disease with stage 1 through stage 4 chronic kidney disease, or unspecified chronic kidney disease; E11.22 Type 2 diabetes mellitus with diabetic chronic kidney disease; N18.3 Chronic kidney disease, stage 3 (moderate)
CPT/HCPCS: A4218

== ENCOUNTER 2019-06-09 11:51 | Outpatient (CLI) | payer MEDICARE ==
--- NOTE | 2019-06-09 12:59 | PRG ---
DATE OF SERVICE: 06/09/2019 HISTORY: Mr. Kristofer Dorado is a very pleasant 83-year-old gentleman, accompanied by his , who presents to the [facility]ound Center for evaluation of an ulceration of the left medial foot in the region of the metatarsophalangeal joint. The patient completed a course of treatment with MatriStem sheet. Mr. Dorado underwent aortogram with left lower extremity runoff by Dr. Martin Coreas on 01/08/2019. The peroneal artery was found to be patent to the ankle. 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 Both arteries were found to reconstitute. Presently, the patient is receiving dressing changes of Santyl on a daily basis after cleansing and irrigation with the assistance of his . Prior to dressing changes of Santyl, the patient received a course of negative pressure therapy. The patient has no complaints today. He denies any fever or chills. PHYSICAL EXAMINATION: VITAL SIGNS: Temperature 97.5, pulse 62, respirations 17, blood pressure 163/77. Accu-Chek 101. EXTREMITIES: An ulceration of the left foot is present, which measures approximately 1.1 x 0.8 cm. The dimensions of the wound at the time of the patient's visit on 05/26/2019 were approximately 0.9 x 0.7 cm. Granulation tissue is present within the wound margins. A sample of tissue within the wound margins was excised with the use of scissors and sent for aerobic and anaerobic cultures. Desiccated tissue at the periphery of the wound was excised with the use of scissors. No purulent drainage is associated with the wound. Erythema of the skin surrounding the wound is present. No maceration of the skin of the periwound is noted. No significant edema of the left foot is present on exam today. ASSESSMENT AND PLAN: 1. 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 MRI of the left foot obtained on 03/16/2019 showed no evidence for osteomyelitis. Erythema of the skin surrounding the wound is noted on exam today and the patient has been given a prescription for clindamycin 300 mg, #30, one p.o. t.i.d. x10 days. Dressing changes of Santyl will be continued on a daily basis after cleansing and irrigation with the assistance of the patient's . I will see Mr. Dorado again in 2 weeks. The patient's has been asked to contact the clinic tomorrow if the erythema of the skin surrounding the wound has failed to decrease. 2. Diabetes mellitus. The patient's Accu-Chek in clinic today is 101. The patient has been reminded that for optimal wound healing, his blood glucoses should remain below 150. 3. Atrial fibrillation. 4. Hypertension. 5. Coronary artery disease. 6. Nephrolithiasis. 7. Transient ischemic attack. 8. Cerebrovascular accident x2. 9. Gastroesophageal reflux disease. 10. Gout. 11. Degenerative joint disease. 12. History of deep venous thrombosis and pulmonary embolism. 13. Peripheral vascular disease. 14. Chronic kidney disease, stage 3. Job ID: [id number]
== END 2019-06-09 11:52 | disposition home or self-care (01) ==
LOC: WCC 11:51
PROVIDERS: ATTEND Family Medicine
DX: E11.621 Type 2 diabetes mellitus with foot ulcer (principal); L97.529 Non-pressure chronic ulcer of other part of left foot with unspecified severity; I12.9 Hypertensive chronic kidney disease with stage 1 through stage 4 chronic kidney disease, or unspecified chronic kidney disease; N18.3 Chronic kidney disease, stage 3 (moderate); I48.91 Unspecified atrial fibrillation; I25.10 Atherosclerotic heart disease of native coronary artery without angina pectoris; N20.0 Calculus of kidney; G45.9 Transient cerebral ischemic attack, unspecified; I63.9 Cerebral infarction, unspecified; K21.9 Gastro-esophageal reflux disease without esophagitis; M10.9 Gout, unspecified; M19.90 Unspecified osteoarthritis, unspecified site; I73.9 Peripheral vascular disease, unspecified; Z86.718 Personal history of other venous thrombosis and embolism
CPT/HCPCS: 87070; 87205; A4218

== ENCOUNTER 2019-06-16 11:18 | Outpatient (CLI) | payer MEDICARE ==
--- NOTE | 2019-06-16 14:19 | PRG ---
DATE OF SERVICE: 06/16/2019 SUBJECTIVE: Mr. Kristofer Dorado is a very pleasant 83-year-old gentleman, accompanied by his , who presents to the wound center for evaluation of an ulceration of the left medial foot in the region of the metatarsophalangeal joint. The patient completed a course of treatment with MatriStem sheet. Mr. Dorado underwent aortogram with left lower extremity runoff by Dr. Martin Coreas, n 01/08/2019 the peroneal artery was found to be patent to the ankle. 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 Both arteries were found to reconstitute currently. The patient is receiving dressing changes of Santyl on a daily basis after cleansing and irrigation with the assistance of his . Prior to dressing changes of Santyl, the patient received a course of negative pressure therapy. PHYSICAL EXAMINATION: VITAL SIGNS: Temperature 97.6, pulse 67, respirations 18, blood pressure 166/93. Accu-Chek 96. EXTREMITIES: An ulceration of the left foot is present which measures approximately 0.9 x 0.8 cm. The dimensions of the wound at the time of the patient's visit on 06/09/2019, were approximately 1.1 x 0.8 cm. Granulation tissue is present within the wound margins. No purulent drainage is associated with the wound. Less erythema of the skin surrounding the wound is present on exam today than at the time of the patient's last visit. No maceration of the skin of the periwound is noted. No significant edema of the left foot is present on exam today. ASSESSMENT AND PLAN: 1. 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 MRI of the left foot obtained on 03/16/2019, showed no evidence for osteomyelitis. As stated above, less erythema of the skin surrounding the wound is noted on exam today than at the time of the patient's last visit. The patient has been given a second prescription for clindamycin 300 mg, #30, one p.o. t.i.d. x10 days. Cultures obtained on 06/09/2019, revealed the growth of many mixed anaerobes. Dressing changes of Santyl will be continued on a daily basis after cleansing and irrigation with the assistance of the patient's . I will see Mr. Haarmeyer again in 1 week. 2. Diabetes mellitus. The patient's Accu-Chek in clinic today is 96. The patient has been reminded that for optimal wound healing, his blood glucoses should remain below 150. 3. Atrial fibrillation. 4. Hypertension. 5. Coronary artery disease. 6. Nephrolithiasis. 7. Transient ischemic attack. 8. Cerebrovascular accident x2. 9. Gastroesophageal reflux disease. 10. Gout. 11. Degenerative joint disease. 12. History of deep venous thrombosis and pulmonary embolism. 13. Peripheral vascular disease. 14. Chronic kidney disease, stage 3. Job ID: [id number]
[2019-06-16] MEDS ORDERED: Lidocaine 2% PF 100 mg/5 ml Syringe ONE (15:00)
[2019-06-16] MEDS ORDERED: Sodium Chloride 0.9% 15 ML NEB ONE (15:00)
== END 2019-06-16 11:19 | disposition home or self-care (01) ==
LOC: WCC 11:18
PROVIDERS: ATTEND Family Medicine
DX: E11.621 Type 2 diabetes mellitus with foot ulcer (principal); L97.529 Non-pressure chronic ulcer of other part of left foot with unspecified severity; I48.91 Unspecified atrial fibrillation; I12.9 Hypertensive chronic kidney disease with stage 1 through stage 4 chronic kidney disease, or unspecified chronic kidney disease; I25.10 Atherosclerotic heart disease of native coronary artery without angina pectoris; N20.0 Calculus of kidney; K21.9 Gastro-esophageal reflux disease without esophagitis; M10.9 Gout, unspecified; M19.90 Unspecified osteoarthritis, unspecified site; E11.51 Type 2 diabetes mellitus with diabetic peripheral angiopathy without gangrene; E11.22 Type 2 diabetes mellitus with diabetic chronic kidney disease; N18.3 Chronic kidney disease, stage 3 (moderate); Z86.73 Personal history of transient ischemic attack (TIA), and cerebral infarction without residual deficits
CPT/HCPCS: 97602; A4218; J2001

== ENCOUNTER 2019-06-23 11:38 | Outpatient (CLI) | payer MEDICARE ==
[2019-06-23] MEDS ORDERED: Sodium Chloride 0.9% 15 ML NEB ONE (16:03)
--- NOTE | 2019-06-23 16:59 | PRG ---
DATE OF SERVICE: 06/23/2019 HISTORY: Mr. Kristofer Dorado is a very pleasant 83-year-old gentleman, accompanied by his who presents to the [facility]ound Center for evaluation of an ulceration of the left medial foot in the region of the metatarsophalangeal joint. The patient completed a course of treatment with MatriStem sheet. Mr. Dorado underwent aortogram with left lower extremity runoff by Dr. Martin Coreas on 01/08/2019. The peroneal artery was found to be patent to the ankle. 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 Both arteries were found to reconstitute. Presently, the patient is receiving dressing changes of Santyl on a daily basis after cleansing and irrigation with the assistance of his . Prior to dressing changes of Santyl, the patient received a course of negative pressure therapy. PHYSICAL EXAMINATION: VITAL SIGNS: Temperature 97.9, pulse 61, respirations 18, and blood pressure 179/77. Accu-Chek 93. EXTREMITIES: An ulceration of the left foot is present, which measures approximately 1.0 x 0.8 cm. The dimensions of the wound at the time of the patient's visit on 06/16/2019 were approximately 0.9 x 0.8 cm. Granulation tissue is present within the wound margins. No purulent drainage is associated with the wound. No erythema of the skin surrounding the wound is appreciated. No maceration of the skin of the periwound is noted. No significant edema of the left foot is present on exam today. ASSESSMENT AND PLAN: 1. 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 MRI of the left foot obtained on 03/16/2019 showed no evidence for osteomyelitis. As stated above, no erythema of the skin surrounding the wound is noted on exam today. Dressing changes of Santyl will be continued on a daily basis after cleansing and irrigation with the assistance of the patient's . I will see Mr. Dorado again in 1 week. At this time, consideration will be given to the resumption of negative pressure therapy and/or repeat MRI to look for findings suggestive of osteomyelitis. I have also discussed a trial of Regranex with the patient. 2. Diabetes mellitus. The patient's Accu-Chek in clinic today is 93. The patient has been reminded that for optimal wound healing, his blood glucoses should remain below 150. 3. Atrial fibrillation. 4. Hypertension. 5. Coronary artery disease. 6. Nephrolithiasis. 7. Transient ischemic attack. 8. Cerebrovascular accident x2. 9. Gastroesophageal reflux disease. 10. Gout. 11. Degenerative joint disease. 12. History of deep venous thrombosis and pulmonary embolism. 13. Peripheral vascular disease. 14. Chronic kidney disease, stage 3. Job ID: [id number]
== END 2019-06-23 11:39 | disposition home or self-care (01) ==
LOC: WCC 11:38
PROVIDERS: ATTEND Family Medicine
DX: E11.621 Type 2 diabetes mellitus with foot ulcer (principal); L97.529 Non-pressure chronic ulcer of other part of left foot with unspecified severity; I48.91 Unspecified atrial fibrillation; I12.9 Hypertensive chronic kidney disease with stage 1 through stage 4 chronic kidney disease, or unspecified chronic kidney disease; E11.22 Type 2 diabetes mellitus with diabetic chronic kidney disease; N18.3 Chronic kidney disease, stage 3 (moderate); I25.10 Atherosclerotic heart disease of native coronary artery without angina pectoris; N20.0 Calculus of kidney; G45.9 Transient cerebral ischemic attack, unspecified; I63.9 Cerebral infarction, unspecified; K21.9 Gastro-esophageal reflux disease without esophagitis; M10.9 Gout, unspecified; M19.90 Unspecified osteoarthritis, unspecified site; I73.9 Peripheral vascular disease, unspecified; Z86.711 Personal history of pulmonary embolism; Z86.718 Personal history of other venous thrombosis and embolism
CPT/HCPCS: A4218

== ENCOUNTER 2019-06-30 09:57 | Outpatient (CLI) | payer MEDICARE ==
--- NOTE | 2019-06-30 10:38 | PRG ---
DATE OF SERVICE: 06/30/2019 HISTORY: Mr. Kristofer Dorado is a very pleasant 83-year-old gentleman, accompanied by his , who presents to the wound center for evaluation of an ulceration of the left medial foot in the region of the metatarsophalangeal joint. The patient completed a course of treatment with MatriStem sheet. Mr. Dorado underwent aortogram with left lower extremity runoff by Dr. Martin Coreas on 01/08/2019. The peroneal artery was found to be patent to the ankle. 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 Both arteries were found to reconstitute. Currently, the patient is receiving dressing changes of Santyl on a daily basis after cleansing and irrigation with the assistance of his . Prior to dressing changes with Santyl, the patient received a course of negative pressure therapy. PHYSICAL EXAMINATION: VITAL SIGNS: Temperature 97.7, pulse 66, respirations 20, and blood pressure 174/79. Accu-Chek 135. EXTREMITIES: An ulceration of the left foot is present, which measures approximately 1.0 x 0.8 cm. The dimensions of the wound at the time of the patient's last visit were also approximately 1.0 x 0.8 cm. Granulation tissue is present within the wound margins. Nonviable tissue present within the wound margins was debrided with an excisional full-thickness debridement with the use of a curette. No purulent drainage is associated with the wound. Slight erythema of the skin surrounding the wound is appreciated. No maceration of the skin of the periwound is noted. No significant edema of the left foot is present on exam today. ASSESSMENT AND PLAN: 1. 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 MRI of the left foot without contrast will be obtained to look for findings suggestive of osteomyelitis. As stated above, slight erythema of the skin surrounding the wound is noted on exam today. Santyl will be applied to the wound bed in conjunction with negative pressure therapy. I will see Mr. Dorado again in 1 week. 2. Diabetes mellitus. The patient's Accu-Chek in clinic today is 135. The patient has been reminded that for optimal wound healing, his blood glucoses should remain below 150. 3. Atrial fibrillation. 4. Hypertension. 5. Coronary artery disease. 6. Nephrolithiasis. 7. Transient ischemic attack. 8. Cerebrovascular accident x2. 9. Gastroesophageal reflux disease. 10. Gout. 11. Degenerative joint disease. 12. History of deep venous thrombosis and pulmonary embolism. 13. Peripheral vascular disease. 14. Chronic kidney disease stage 3. Job ID: [id number]
== END 2019-06-30 09:58 | disposition home or self-care (01) ==
LOC: WCC 09:57
PROVIDERS: ATTEND Family Medicine
DX: E11.621 Type 2 diabetes mellitus with foot ulcer (principal); L97.429 Non-pressure chronic ulcer of left heel and midfoot with unspecified severity; I25.10 Atherosclerotic heart disease of native coronary artery without angina pectoris; I48.91 Unspecified atrial fibrillation; I12.9 Hypertensive chronic kidney disease with stage 1 through stage 4 chronic kidney disease, or unspecified chronic kidney disease; E11.22 Type 2 diabetes mellitus with diabetic chronic kidney disease; N18.3 Chronic kidney disease, stage 3 (moderate); N20.0 Calculus of kidney; G45.9 Transient cerebral ischemic attack, unspecified; I63.9 Cerebral infarction, unspecified; K21.9 Gastro-esophageal reflux disease without esophagitis; M10.9 Gout, unspecified; M19.90 Unspecified osteoarthritis, unspecified site; I73.9 Peripheral vascular disease, unspecified; Z86.711 Personal history of pulmonary embolism; Z86.718 Personal history of other venous thrombosis and embolism
CPT/HCPCS: 97602

== ENCOUNTER 2019-07-07 12:33 | Outpatient (CLI) | payer MEDICARE ==
--- NOTE | 2019-07-07 15:21 | MRI ---
MRI OF LEFT FOOT PERFORMED WITHOUT CONTRAST ENHANCEMENT: Date: 07/07/19 HISTORY: Nonhealing ulcer left great toe. Evaluate for osteomyelitis. COMPARISON: 03/16/19. FINDINGS: Edema changes are seen in the soft tissues. These changes are most pronounced on the dorsal side of t he foot. There is no drainable fluid collection seen. Soft tissue changes are seen along the medial s keira of the first metatarsal head. I do not appreciate any evidence for osteomyelitis. IMPRESSION: No MR evidence for osteomyelitis. POS: [facility]
== END 2019-07-07 12:34 | disposition home or self-care (01) ==
LOC: MRI 12:33
PROVIDERS: ATTEND Family Medicine
DX: L97.429 Non-pressure chronic ulcer of left heel and midfoot with unspecified severity (principal)

== ENCOUNTER 2019-07-07 13:33 | Outpatient (CLI) | payer MEDICARE ==
--- NOTE | 2019-07-07 14:44 | PRG ---
DATE OF SERVICE: 07/07/2019 SUBJECTIVE: Mr. Kristofer Dorado is a very pleasant 83-year-old gentleman, accompanied by his , who presents to the Wound Center for evaluation of an ulceration of the left medial foot in the region of the metatarsophalangeal joint. The patient completed a course of treatment with MatriStem sheet. Mr. Dorado underwent aortogram with left lower extremity runoff by Dr. Martin Coreas on 01/08/2019. The peroneal artery was found to be patent to the ankle. 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 Both arteries were found to reconstitute. Presently, the patient is receiving negative pressure therapy with dressing changes of the wound VAC here in the Wound Center. Santyl is being applied to the wound bed in conjunction with negative pressure therapy. OBJECTIVE: VITAL SIGNS: Temperature 97.5, pulse 73, respirations 19, and blood pressure 186/96. Accu-Chek 100. EXTREMITIES: An ulceration of the left medial foot is present, which measures approximately 0.9 x 0.7 cm. The dimensions of the wound at the time of the patient's last visit were approximately 1.0 x 0.8 cm. Granulation tissue is present within the wound margins. Nonviable tissue present within the wound margins was debrided with an excisional full-thickness debridement with the use of a curette. No purulent drainage is associated with the wound. No erythema of the skin surrounding the wound is present. Maceration of the skin of the periwound is noted. No significant edema of the left foot is present on exam today. ASSESSMENT AND PLAN: 1. 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 MRI of the left foot without contrast was obtained today to look for findings suggestive of osteomyelitis. Santyl will be applied to the wound bed in conjunction with negative pressure therapy. I will see Mr. Dorado again in 1 week. 2. Diabetes mellitus. The patient's Accu-Chek in clinic today is 100. The patient has been reminded that for optimal wound healing, his blood glucoses should remain below 150. 3. Atrial fibrillation. 4. Hypertension. 5. Coronary artery disease. 6. Nephrolithiasis. 7. Transient ischemic attack. 8. Cerebrovascular accident x2. 9. Gastroesophageal reflux disease. 10. Gout. 11. Degenerative joint disease. 12. History of deep venous thrombosis and pulmonary embolism. 13. Peripheral vascular disease. 14. Chronic kidney disease, stage 3. Job ID: [id number]
[2019-07-07] MEDS ORDERED: Sodium Chloride 0.9% 15 ML NEB ONE (18:00)
== END 2019-07-07 13:34 | disposition home or self-care (01) ==
LOC: WCC 13:33
PROVIDERS: ATTEND Family Medicine
DX: E11.621 Type 2 diabetes mellitus with foot ulcer (principal); L97.529 Non-pressure chronic ulcer of other part of left foot with unspecified severity; I12.9 Hypertensive chronic kidney disease with stage 1 through stage 4 chronic kidney disease, or unspecified chronic kidney disease; E11.22 Type 2 diabetes mellitus with diabetic chronic kidney disease; N18.3 Chronic kidney disease, stage 3 (moderate); I25.10 Atherosclerotic heart disease of native coronary artery without angina pectoris; N20.0 Calculus of kidney; G45.9 Transient cerebral ischemic attack, unspecified; I48.91 Unspecified atrial fibrillation; K21.9 Gastro-esophageal reflux disease without esophagitis; I63.9 Cerebral infarction, unspecified; M10.9 Gout, unspecified; M19.90 Unspecified osteoarthritis, unspecified site; I73.9 Peripheral vascular disease, unspecified; Z86.711 Personal history of pulmonary embolism; Z86.718 Personal history of other venous thrombosis and embolism
CPT/HCPCS: A4218

== ENCOUNTER 2019-07-14 11:04 | Outpatient (CLI) | payer MEDICARE ==
--- NOTE | 2019-07-14 11:53 | PRG ---
DATE OF SERVICE: 07/14/2019 HISTORY: Mr. Kristofer Dorado is a very pleasant 83-year-old gentleman, accompanied by his , who presents to the Wound Center for evaluation of an ulceration of the left medial foot in the region of the metatarsophalangeal joint. The patient completed a course of treatment with MatriStem sheet. Mr. Dorado underwent aortogram with left lower extremity runoff by Dr. Martin Coreas on 01/08/2019. The peroneal artery was found to be patent to the ankle. 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 Both arteries were found to reconstitute. Currently, the patient is receiving negative pressure therapy with dressing changes of the wound VAC here in the Wound Center. Santyl is being applied to the wound bed in conjunction with negative pressure therapy. The patient also has received treatment with the EpiFix in conjunction with negative pressure therapy. PHYSICAL EXAMINATION: VITAL SIGNS: Temperature 97.5, pulse 66, respirations 24, blood pressure 142/85. Accu-Chek 96. EXTREMITIES: An ulceration of the left medial foot is present, which measures approximately 0.8 x 0.8 cm. The dimensions of the wound at the time of the patient's last visit were approximately 0.9 x 0.7 cm. Granulation tissue is present within the wound margins. Nonviable tissue present within the wound margins was debrided with an excisional full-thickness debridement with the use of a curette. No purulent drainage is associated with the wound. No erythema of the skin surrounding the wound is present. No maceration of the skin of the periwound is noted. No significant edema of the left foot is present on exam today. Post-debridement measurements are approximately 0.8 x 0.9 cm. ASSESSMENT AND PLAN: 1. 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 MRI of the left foot without contrast obtained on 07/07/2019 showed no MR evidence for osteomyelitis. Santyl will be applied to the wound bed in conjunction with negative pressure therapy. I will see Mr. Dorado again in 1 week. 2. Diabetes mellitus. The patient's Accu-Chek in clinic today is 96. The patient has been reminded that for optimal wound healing, his blood glucoses should remain below 150. 3. Atrial fibrillation. 4. Hypertension. 5. Coronary artery disease. 6. Nephrolithiasis. 7. Transient ischemic attack. 8. Cerebrovascular accident x2. 9. Gastroesophageal reflux disease. 10. Gout. 11. Degenerative joint disease. 12. History of deep venous thrombosis and pulmonary embolism. 13. Peripheral vascular disease. 14. Chronic kidney disease stage 3. Job ID: [id number]
[2019-07-14] MEDS ORDERED: Sodium Chloride 0.9% 15 ML NEB ONE (18:00)
== END 2019-07-14 11:05 | disposition home or self-care (01) ==
LOC: WCC 11:04
PROVIDERS: ATTEND Family Medicine
DX: E11.621 Type 2 diabetes mellitus with foot ulcer (principal); L97.429 Non-pressure chronic ulcer of left heel and midfoot with unspecified severity; I48.20 Chronic atrial fibrillation, unspecified; I12.9 Hypertensive chronic kidney disease with stage 1 through stage 4 chronic kidney disease, or unspecified chronic kidney disease; E11.22 Type 2 diabetes mellitus with diabetic chronic kidney disease; N18.3 Chronic kidney disease, stage 3 (moderate); I73.9 Peripheral vascular disease, unspecified; G45.9 Transient cerebral ischemic attack, unspecified; N20.0 Calculus of kidney; I25.10 Atherosclerotic heart disease of native coronary artery without angina pectoris; I63.9 Cerebral infarction, unspecified; M10.9 Gout, unspecified; K21.9 Gastro-esophageal reflux disease without esophagitis; M19.90 Unspecified osteoarthritis, unspecified site; Z86.718 Personal history of other venous thrombosis and embolism; Z86.711 Personal history of pulmonary embolism
CPT/HCPCS: 29581; A4218

== ENCOUNTER 2019-07-20 13:12 | Outpatient (CLI) | payer MEDICARE | END 2019-07-20 13:13 | disposition home or self-care (01) | LOC: WCC 13:12 | PROVIDERS: ATTEND Family Medicine | DX: L97.529 Non-pressure chronic ulcer of other part of left foot with unspecified severity (principal) | CPT/HCPCS: A4218 ==

== ENCOUNTER 2019-07-28 13:21 | Outpatient (CLI) | payer MEDICARE ==
--- NOTE | 2019-07-28 17:13 | PRG ---
DATE OF SERVICE: 07/28/2019 HISTORY: Mr. Kristofer Dorado is a very pleasant 83-year-old gentleman, accompanied by his who presents to the Wound Center for evaluation of an ulceration of the left medial foot in the region of the metatarsophalangeal joint. The patient completed a course of treatment with MatriStem sheet. Mr. Dorado underwent aortogram with left lower extremity runoff by Dr. Martin Coreas on 01/08/2019. The peroneal artery was found to be patent to the ankle. 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 Both arteries were found to reconstitute. Presently, the patient is receiving negative pressure therapy with dressing changes of the wound VAC here in the Wound Center. Santyl is being applied to the wound bed in conjunction with negative pressure therapy. The patient has also received treatment with EpiFix in conjunction with negative pressure therapy. PHYSICAL EXAMINATION: VITAL SIGNS: Temperature 97.5, pulse 70, respirations 18, blood pressure 140/73. Accu-Chek 97. EXTREMITIES: An ulceration of the left medial foot is present which measures approximately 1.0 x 0.6 cm. The dimensions of the wound at the time of the patient's visit on 07/14/2019 were approximately 0.8 x 0.8 cm. Granulation tissue is present within the wound margins. Nonviable tissue present within the wound margins was debrided with an excisional full-thickness debridement with the use of a curette. No purulent drainage is associated with the wound. No erythema of the skin surrounding the wound is present. No maceration of the skin of the periwound is noted. No significant edema of the left foot is present on exam today. Post debridement measurements are approximately 0.9 x 0.7 cm. ASSESSMENT AND PLAN: 1. 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 MRI of the left foot without contrast obtained on 07/07/2019 showed no MR evidence for osteomyelitis. Santyl followed by Sid will be applied to the wound bed in conjunction with negative pressure therapy. I will see Mr. Dorado again in 1 week. 2. Diabetes mellitus. The patient's Accu-Chek in clinic today is 97. The patient has been reminded that for optimal wound healing, his blood glucoses should remain below 150. 3. Atrial fibrillation. 4. Hypertension. 5. Coronary artery disease. 6. Nephrolithiasis. 7. Transient ischemic attack. 8. Cerebrovascular accident x2. 9. Gastroesophageal reflux disease. 10. Gout. 11. Degenerative joint disease. 12. History of deep venous thrombosis and pulmonary embolism. 13. Peripheral vascular disease. 14. Chronic kidney disease stage 3. Job ID: [id number]
== END 2019-07-28 13:22 | disposition home or self-care (01) ==
LOC: WCC 13:21
PROVIDERS: ATTEND Family Medicine
DX: E11.621 Type 2 diabetes mellitus with foot ulcer (principal); L97.529 Non-pressure chronic ulcer of other part of left foot with unspecified severity; I25.10 Atherosclerotic heart disease of native coronary artery without angina pectoris; N40.0 Benign prostatic hyperplasia without lower urinary tract symptoms; G45.9 Transient cerebral ischemic attack, unspecified; I63.9 Cerebral infarction, unspecified; K21.9 Gastro-esophageal reflux disease without esophagitis; M10.9 Gout, unspecified; M19.90 Unspecified osteoarthritis, unspecified site; I73.9 Peripheral vascular disease, unspecified; I48.91 Unspecified atrial fibrillation; I12.9 Hypertensive chronic kidney disease with stage 1 through stage 4 chronic kidney disease, or unspecified chronic kidney disease; E11.22 Type 2 diabetes mellitus with diabetic chronic kidney disease; N18.3 Chronic kidney disease, stage 3 (moderate); Z86.718 Personal history of other venous thrombosis and embolism
CPT/HCPCS: 29581; A4218

== ENCOUNTER 2019-08-04 10:45 | Outpatient (CLI) | payer MEDICARE ==
[2019-08-04] MEDS ORDERED: Sodium Chloride 0.9% 15 ML NEB ONE (11:16)
--- NOTE | 2019-08-04 11:50 | PRG ---
DATE OF SERVICE: 08/04/2019 HISTORY: Mr. Kristofer Dorado is a very pleasant 83-year-old gentleman, accompanied by his who presents to the Wound Center for evaluation of an ulceration of the left medial foot in the region of the metatarsophalangeal joint. The patient completed a course of treatment with MatriStem sheet. Mr. Dorado underwent aortogram with left lower extremity runoff by Dr. Martin Coreas on 01/08/2019. The peroneal artery was found to be patent to the ankle. 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 Both arteries were found to reconstitute. Currently, the patient is receiving negative pressure therapy with dressing changes of the wound VAC here in the Wound Center. Santyl is being applied to the wound bed in conjunction with negative pressure therapy. The patient has also received EpiFix in conjunction with negative pressure therapy. At the time of the patient's last visit, Santyl followed by Promogran was applied to the wound bed in conjunction with negative pressure therapy. PHYSICAL EXAMINATION: VITAL SIGNS: Temperature 97.7, pulse 70, respirations 22, and blood pressure 154/71. Accu-Chek 96. EXTREMITIES: An ulceration of the left medial foot is present, which measures approximately 0.8 x 0.6 cm. The dimensions of the wound at the time of the patient's visit on 07/28/2019 were approximately 1.0 x 0.6 cm. Granulation tissue is present within the wound margins. Nonviable tissue present within the wound margins was debrided with an excisional full-thickness debridement with the use of a curette. No purulent drainage is associated with the wound. No erythema of the skin surrounding the wound is present. No maceration of the skin of the periwound is noted. No significant edema of the left foot is present on exam today. Post debridement measurements are approximately 0.6 x 0.8 cm. ASSESSMENT AND PLAN: 1. 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 MRI of the left foot without contrast obtained on 07/07/2019 showed no MR evidence for osteomyelitis. Santyl followed by Promogran will be applied to the wound bed in conjunction with negative pressure therapy. I will see Mr. Dorado again in 1 week. 2. Diabetes mellitus. The patient's Accu-Chek in clinic today is 96. The patient has been reminded that for optimal wound healing, his blood glucoses should remain below 150. 3. Atrial fibrillation. 4. Hypertension. 5. Coronary artery disease. 6. Nephrolithiasis. 7. Transient ischemic attack. 8. Cerebrovascular accident x2. 9. Gastroesophageal reflux disease. 10. Gout. 11. Degenerative joint disease. 12. History of deep venous thrombosis and pulmonary embolism. 13. Peripheral vascular disease. 14. Chronic kidney disease, stage 3. Job ID: [id number]
== END 2019-08-04 10:46 | disposition home or self-care (01) ==
LOC: WCC 10:45
PROVIDERS: ATTEND Family Medicine
DX: L97.429 Non-pressure chronic ulcer of left heel and midfoot with unspecified severity (principal)
CPT/HCPCS: 29581; A4218

== ENCOUNTER 2019-08-11 14:10 | Outpatient (CLI) | payer MEDICARE | END 2019-08-11 14:11 | disposition home or self-care (01) | LOC: WCC 14:10 | PROVIDERS: ATTEND Family Medicine | DX: L97.929 Non-pressure chronic ulcer of unspecified part of left lower leg with unspecified severity (principal) | CPT/HCPCS: 97605 ==

== ENCOUNTER 2019-08-18 10:30 | Outpatient (CLI) | payer MEDICARE ==
[2019-08-18] MEDS ORDERED: Sodium Chloride 0.9% 15 ML NEB ONE (17:08)
--- NOTE | 2019-08-18 17:29 | PRG ---
DATE OF SERVICE: 08/18/2019 HISTORY: Mr. Kristofer Dorado is a very pleasant 83-year-old gentleman, accompanied by his who presents to the Wound Center for evaluation of an ulceration of the left medial foot in the region of the metatarsophalangeal joint. The patient completed a course of treatment with MatriStem sheet. Mr. Dorado underwent aortogram with left lower extremity runoff by Dr. Martin Coreas on 01/08/2019. The peroneal artery was found to be patent to the ankle, one segment occlusions of both anterior tibial and posterior tibial arteries were noted. Both arteries were found to reconstitute. Currently, the patient is receiving negative pressure therapy with dressing changes of the wound VAC here in the Wound Center. Santyl is being applied to the wound bed in conjunction with negative pressure therapy. The patient has also received EpiFix in conjunction with negative pressure therapy. The patient has also received the application of Santyl followed by Promogran to the wound bed in conjunction with negative pressure therapy. OBJECTIVE: VITAL SIGNS: Temperature 97.7, pulse 61, respirations 17, blood pressure 182/90. Accu-Chek 106. EXTREMITIES: An ulceration of the left medial foot is present which measures approximately 0.9 x 0.5 cm. The dimensions of the wound at the time of the patient's visit on 08/04/2019 were approximately 0.8 x 0.6 cm. Granulation tissue is present within the wound margins. Nonviable tissue present within the wound margins was debrided with an excisional full-thickness debridement with the use of a curette. No purulent drainage is associated with the wound. No erythema of the skin surrounding the wound is present. No maceration of the skin of the periwound is noted. No significant edema of the left foot is present on exam today. ASSESSMENT AND PLAN: 1. 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 MRI of the left foot without contrast obtained on 07/07/2019 showed no MR evidence for osteomyelitis. Santyl will be applied to the wound bed in conjunction with negative pressure therapy. Promogran to the wound bed will be discontinued. I will see Mr. Dorado again in 1 week. 2. Diabetes mellitus. The patient's Accu-Chek in clinic today is 106. The patient has been reminded that for optimal wound healing, his blood glucoses should remain below 150. 3. Atrial fibrillation. 4. Hypertension. 5. Coronary artery disease. 6. Nephrolithiasis. 7. Transient ischemic attack. 8. Cerebrovascular accident x2. 9. Gastroesophageal reflux disease. 10. Gout. 11. Degenerative joint disease. 12. History of deep venous thrombosis and pulmonary embolism. 13. Peripheral vascular disease. 14. Chronic kidney disease, stage 3. Job ID: [id number]
== END 2019-08-18 10:31 | disposition home or self-care (01) ==
LOC: WCC 10:30
PROVIDERS: ATTEND Family Medicine
DX: E11.621 Type 2 diabetes mellitus with foot ulcer (principal); L97.529 Non-pressure chronic ulcer of other part of left foot with unspecified severity; I48.91 Unspecified atrial fibrillation; I25.10 Atherosclerotic heart disease of native coronary artery without angina pectoris; I12.9 Hypertensive chronic kidney disease with stage 1 through stage 4 chronic kidney disease, or unspecified chronic kidney disease; E11.22 Type 2 diabetes mellitus with diabetic chronic kidney disease; N18.3 Chronic kidney disease, stage 3 (moderate); N20.0 Calculus of kidney; K21.9 Gastro-esophageal reflux disease without esophagitis; M10.9 Gout, unspecified; M19.90 Unspecified osteoarthritis, unspecified site; I73.9 Peripheral vascular disease, unspecified; G45.9 Transient cerebral ischemic attack, unspecified; I63.9 Cerebral infarction, unspecified; Z86.711 Personal history of pulmonary embolism; Z86.718 Personal history of other venous thrombosis and embolism
CPT/HCPCS: A4218

== ENCOUNTER 2019-08-25 15:48 | Outpatient (CLI) | payer MEDICARE ==
--- NOTE | 2019-08-25 17:11 | PRG ---
DATE OF SERVICE: 08/25/2019 HISTORY: Mr. Kristofer Dorado is a very pleasant 83-year-old gentleman, accompanied by his , who presents to the Wound Center for evaluation of an ulceration of the left medial foot in the region of the metatarsophalangeal joint. The patient completed a course of treatment with MatriStem sheet. Mr. Dorado underwent aortogram with left lower extremity runoff by Dr. Martin Coreas on 01/08/2019. The peroneal artery was found to be patent to the ankle. 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 Both arteries were found to reconstitute. Presently, the patient is receiving negative pressure therapy with dressing changes of the wound VAC here in the Wound Center. Santyl is being applied to the wound bed in conjunction with negative pressure therapy. The patient has also received EpiFix in conjunction with negative pressure therapy. The patient has also received the application of Santyl followed by Promogran to the wound bed in conjunction with negative pressure therapy. PHYSICAL EXAMINATION: VITAL SIGNS: Temperature 97.5, pulse 59, respirations 19, and blood pressure 177/92. Accu-Chek 106. EXTREMITIES: An ulceration of the left medial foot is present, which measures approximately 0.7 x 0.5 cm. The dimensions of the wound at the time of the patient's visit on 08/18/2019 were approximately 0.9 x 0.5 cm. Granulation tissue is present within the wound margins. Nonviable tissue present within the wound margins was debrided with an excisional full-thickness debridement with the use of a curette. No purulent drainage is associated with the wound. No erythema of the skin surrounding the wound is present. No maceration of the skin of the periwound is noted. No significant edema of the left foot is present on exam today. Postdebridement measurements are approximately 0.7 x 0.6 cm. ASSESSMENT AND PLAN: 1. 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 MRI of the left foot without contrast obtained on 07/07/2019 showed no MR evidence for osteomyelitis. Santyl will be applied to the wound bed in conjunction with negative pressure therapy. I will see Mr. Dorado again in 1 week. 2. Diabetes mellitus. The patient's Accu-Chek in clinic today is 106. The patient has been reminded that for optimal wound healing, his blood glucoses should remain below 150. 3. Atrial fibrillation. 4. Hypertension. 5. Coronary artery disease. 6. Nephrolithiasis. 7. Transient ischemic attack. 8. Cerebrovascular accident x2. 9. Gastroesophageal reflux disease. 10. Gout. 11. Degenerative joint disease. 12. History of deep venous thrombosis and pulmonary embolism. 13. Peripheral vascular disease. 14. Chronic kidney disease, stage 3. Job ID: [id number]
== END 2019-08-25 15:49 | disposition home or self-care (01) ==
LOC: WCC 15:48
PROVIDERS: ATTEND Family Medicine
DX: E11.621 Type 2 diabetes mellitus with foot ulcer (principal); L97.429 Non-pressure chronic ulcer of left heel and midfoot with unspecified severity; I48.91 Unspecified atrial fibrillation; I25.10 Atherosclerotic heart disease of native coronary artery without angina pectoris; N20.0 Calculus of kidney; G45.9 Transient cerebral ischemic attack, unspecified; M10.9 Gout, unspecified; K21.9 Gastro-esophageal reflux disease without esophagitis; M19.90 Unspecified osteoarthritis, unspecified site; I12.9 Hypertensive chronic kidney disease with stage 1 through stage 4 chronic kidney disease, or unspecified chronic kidney disease; E11.22 Type 2 diabetes mellitus with diabetic chronic kidney disease; N18.3 Chronic kidney disease, stage 3 (moderate); I73.9 Peripheral vascular disease, unspecified; I63.9 Cerebral infarction, unspecified; Z86.718 Personal history of other venous thrombosis and embolism
CPT/HCPCS: A4218

== ENCOUNTER 2019-09-01 12:01 | Outpatient (CLI) | payer MEDICARE ==
[2019-09-01] MEDS ORDERED: Sodium Chloride 0.9% 15 ML NEB ONE (17:04)
--- NOTE | 2019-09-01 17:49 | PRG ---
DATE OF SERVICE: 09/01/2019 SUBJECTIVE: Mr. Kristofer Dorado is a very pleasant 83-year-old gentleman, accompanied by his , who presents to the Wound Center for evaluation of an ulceration of the left medial foot in the region of the metatarsophalangeal joint. The patient completed a course of treatment with MatriStem sheet. Mr. Dorado underwent aortogram with left lower extremity runoff by Dr. Martin Coreas on 01/08/2019. The peroneal artery was found to be patent to the ankle. 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 Both arteries were found to reconstitute. Currently, the patient is receiving negative pressure therapy with dressing changes of the wound VAC here in the Wound Center. Santyl is being applied to the wound bed in conjunction with negative pressure therapy. The patient has also received EpiFix in conjunction with negative pressure therapy. The patient has also received the application of Santyl followed by Promogran to the wound bed in conjunction with negative pressure therapy. OBJECTIVE: VITAL SIGNS: Temperature 97.5, pulse 66, respirations 19, and blood pressure 171/83. Accu-Chek 100. EXTREMITIES: An ulceration of the left medial foot is present, which measures approximately 0.7 x 0.7 cm. The dimensions of the wound at the time of the patient's visit on 08/25/2019 were approximately 0.7 x 0.5 cm. Granulation tissue is present within the wound margins. Nonviable tissue present within the wound margins was debrided with an excisional full-thickness debridement with the use of a curette. No purulent drainage is associated with the wound. No erythema of the skin surrounding the wound is present. No maceration of the skin of the periwound is noted. No significant edema of the left foot is present on exam today. ASSESSMENT AND PLAN: 1. 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 MRI of the left foot without contrast obtained on 07/07/2019 showed no MR evidence for osteomyelitis. Santyl will be applied to the wound bed in conjunction with negative pressure therapy. I have asked the patient to schedule an appointment in the Wound Center for 1 week from today. 2. Diabetes mellitus. The patient's Accu-Chek in clinic today is 100. The patient has been reminded that for optimal wound healing his blood glucoses should remain below 150. 3. Atrial fibrillation. 4. Hypertension. 5. Coronary artery disease. 6. Nephrolithiasis. 7. Transient ischemic attack. 8. Cerebrovascular accident x2. 9. Gastroesophageal reflux disease. 10. Gout. 11. Degenerative joint disease. 12. History of deep venous thrombosis and pulmonary embolism. 13. Peripheral vascular disease. 14. Chronic kidney disease stage 3. Job ID: [id number]
== END 2019-09-01 12:02 | disposition home or self-care (01) ==
LOC: WCC 12:01
PROVIDERS: ATTEND Family Medicine
DX: E11.621 Type 2 diabetes mellitus with foot ulcer (principal); L97.529 Non-pressure chronic ulcer of other part of left foot with unspecified severity; I48.91 Unspecified atrial fibrillation; I25.10 Atherosclerotic heart disease of native coronary artery without angina pectoris; N20.0 Calculus of kidney; G45.9 Transient cerebral ischemic attack, unspecified; I63.9 Cerebral infarction, unspecified; K21.9 Gastro-esophageal reflux disease without esophagitis; M10.9 Gout, unspecified; M19.90 Unspecified osteoarthritis, unspecified site; I12.9 Hypertensive chronic kidney disease with stage 1 through stage 4 chronic kidney disease, or unspecified chronic kidney disease; E11.22 Type 2 diabetes mellitus with diabetic chronic kidney disease; N18.3 Chronic kidney disease, stage 3 (moderate); I73.9 Peripheral vascular disease, unspecified; Z86.718 Personal history of other venous thrombosis and embolism
CPT/HCPCS: A4218